=== PATIENT | male | born 1950 | race Hispanic/Latino ===

== ENCOUNTER 2018-04-11 16:40 | Emergency (ER) | payer MEDICARE ==
[~2018-04-11 16:40] MED LIST: ACET-48 PO; ALBU90AE IH; ASPI-555 PO; BACL10TA PO; BUDE10.2 IH; BUSP5TAB3 PO; CARV6.25 PO; DILT180C86 PO; ESCI20TA PO; FINA5TAB41 PO; FURO40TA5 PO; GABA-531 PO; INSU500I SQ; LABE200T5 PO; LACT10SO PO; LINA5TAB PO; Losartan Potassium PO; MOME17N EN; NITRO STAT SQ; OLOP5DRO14 OP; RIVA20TA PO; SIMV20TA6 PO; SPIR50TA PO; TAMS0.4C32 PO; VIT D2 PO
[2018-04-11] MEDS ORDERED: TRAMADOL HCL 50 MG TABLET ONE ×2 (17:15→17:19)
[2018-04-11] MEDS ORDERED: ACETAMINOPHEN EXTRA STRENGTH 500 MG TABLET ONE ×2 (17:15→17:19)
[2018-04-11] MEDS ORDERED: ONDANSETRON HCL 4 MG/2 ML VIAL ONE (18:50)
[2018-04-11] MEDS ORDERED: MORPHINE SULFATE 4 MG/1ML SYG ONE ×2 (18:50→21:39)
== END 2018-04-11 23:17 | disposition home or self-care (01) ==
LOC: EDH 16:40
DX: S82.852A Displaced trimalleolar fracture of left lower leg, initial encounter for closed fracture (principal); E10.9 Type 1 diabetes mellitus without complications; I10 Essential (primary) hypertension; M06.9 Rheumatoid arthritis, unspecified; Z91.048 Other nonmedicinal substance allergy status; Z98.890 Other specified postprocedural states; W18.39XA Other fall on same level, initial encounter; Y93.89 Activity, other specified; Y92.89 Other specified places as the place of occurrence of the external cause; Y99.8 Other external cause status
CPT/HCPCS: 29515; 73610; 73630; 96374; 96375; 96376; 99285; J2270 ×2; J2405

== ENCOUNTER 2018-06-02 18:04 | Emergency (ER) | payer MEDICARE ==
[2018-06-02 18:23] LABS: BASOPHILS % (AUTO) 0.4 % (0.0-5.0); EOSINOPHILS % (AUTO) 5.1 % (0.0-8.0); HEMATOCRIT 37.9 % (42-54); LYMPHOCYTES % (AUTO) 22.1 % (21.0-51.0); MEAN CORPUSCULAR HEMOGLOBIN 29.8 pg (27.0-33.0); MEAN CORPUSCULAR HGB CONC 33.5 g/dL (32.0-36.0); MEAN CORPUSCULAR VOLUME 88.9 fL (79-99); MONOCYTES % (AUTO) 8.1 % (3.0-13.0); NEUTROPHILS % (AUTO) 64.3 % (40.0-77.0); PLATELET COUNT (AUTO) 223 K/uL (130-400); RED BLOOD CELL COUNT(AUTO) 4.26 MIL/uL (4.50-6.20); RED CELL DISTRIBUTION WIDTH 14.2 % (11.0-15.5); WHITE BLOOD COUNT (AUTO) 6.7 K/uL (4.8-10.8)
[2018-06-02 18:45] LABS: ALBUMIN 2.9 g/dL (3.5-5.0); BILIRUBIN,TOTAL 0.3 mg/dL (0.2-1.0); CREATININE 1.1 mg/dL (0.5-1.5); POTASSIUM 4.9 mmol/L (3.5-5.1); TOTAL PROTEIN, SERUM 7.3 g/dL (6.0-8.3)
[2018-06-02] MEDS ORDERED: ACETAMINOPHEN EXTRA STRENGTH 500 MG TABLET ONE (20:30)
== END 2018-06-02 22:24 | disposition home or self-care (01) ==
LOC: EDH 18:04
DX: I10 Essential (primary) hypertension (principal); I48.91 Unspecified atrial fibrillation; E78.5 Hyperlipidemia, unspecified; E11.9 Type 2 diabetes mellitus without complications; G89.29 Other chronic pain; Z90.49 Acquired absence of other specified parts of digestive tract; Z98.890 Other specified postprocedural states; Z87.891 Personal history of nicotine dependence; Z91.048 Other nonmedicinal substance allergy status; Z79.4 Long term (current) use of insulin
CPT/HCPCS: 36415; 80053; 84484; 85025; 93005

== ENCOUNTER → 2018-11-10 | Outpatient (CLI) | payer MEDICARE ==
--- NOTE | 2018-11-10 10:47 | NUR ---
MBSS COMPLETED. -S/S OF ASPIRATION. RECOMMEND REGULAR DIET AND NECTAR THICK LIQUIDS. Addendum: 11/10/18 at 1050 by TREVON GARCIA [facility] Amended: Links added.
== END | disposition home or self-care (01) ==
LOC: RAH 09:31
PROVIDERS: ATTEND Family Medicine Adult Medicine
DX: I63.89 Other cerebral infarction (principal); R13.10 Dysphagia, unspecified; I10 Essential (primary) hypertension; E11.9 Type 2 diabetes mellitus without complications; Z79.899 Other long term (current) drug therapy
CPT/HCPCS: 74230; 92611

== ENCOUNTER 2019-02-09 12:51 | Emergency (ER) | payer MEDICARE ==
[2019-02-09] MEDS ORDERED: HYDROCODONE/ACETAMINOPHEN 10/325 MG TAB ONE (15:28)
== END 2019-02-09 15:42 | disposition home or self-care (01) ==
LOC: EDH 12:51
DX: M25.572 Pain in left ankle and joints of left foot (principal); I48.91 Unspecified atrial fibrillation; E11.9 Type 2 diabetes mellitus without complications; E78.5 Hyperlipidemia, unspecified; I10 Essential (primary) hypertension; F12.10 Cannabis abuse, uncomplicated; M06.9 Rheumatoid arthritis, unspecified; Z90.49 Acquired absence of other specified parts of digestive tract; Z79.4 Long term (current) use of insulin; Z72.0 Tobacco use; Z91.048 Other nonmedicinal substance allergy status
CPT/HCPCS: 73600; 82948

== ENCOUNTER → 2019-02-14 | Outpatient (CLI) | payer MEDICARE ==
[~2019-02-14] MED LIST changes: -ACET-48 PO; +ACET-49 PO; +SIMV-43 PO; -SIMV20TA6 PO
== END | disposition home or self-care (01) ==
LOC: RAH 12:37
PROVIDERS: ATTEND Family Medicine Adult Medicine
DX: I63.9 Cerebral infarction, unspecified (principal)
CPT/HCPCS: 70450

== ENCOUNTER 2019-05-17 15:58 | Emergency (ER) | payer MEDICARE ==
[2019-05-17] MEDS ORDERED: HYDROCODONE/ACETAMINOPHEN 10/325 MG TAB ONE (16:46)
[2019-05-17] MEDS ORDERED: MORPHINE SULFATE 5 MG/ML VIAL ONE ×2 (17:51→17:52)
== END 2019-05-17 18:14 | disposition home or self-care (01) ==
LOC: EDH 15:58
DX: S42.202A Unspecified fracture of upper end of left humerus, initial encounter for closed fracture (principal); I48.91 Unspecified atrial fibrillation; E11.9 Type 2 diabetes mellitus without complications; E78.5 Hyperlipidemia, unspecified; I10 Essential (primary) hypertension; F12.10 Cannabis abuse, uncomplicated; M06.9 Rheumatoid arthritis, unspecified; Z79.4 Long term (current) use of insulin; Z90.49 Acquired absence of other specified parts of digestive tract; Y04.0XXA Assault by unarmed brawl or fight, initial encounter; Y93.89 Activity, other specified; Y92.89 Other specified places as the place of occurrence of the external cause; Y99.8 Other external cause status
CPT/HCPCS: 71046; 72040; 73030; 96372; 99284; J2270 ×2

== ENCOUNTER 2019-06-23 10:00 | Observation (INO) | payer MEDICARE ==
[~2019-06-23] VITALS: Ht 167.6 cm; Wt 161.5 kg
[2019-06-23 10:00] VITALS: BP 103/62
[~2019-06-23 10:00] MED LIST changes: -ACET-49 PO; -ALBU90AE IH; -ASPI-555 PO; -BUDE10.2 IH; -CARV6.25 PO; -DILT180C86 PO; -ESCI20TA PO; -FINA5TAB41 PO; -GABA-531 PO; -INSU500I SQ; -LABE200T5 PO; -LACT10SO PO; -LINA5TAB PO; -Losartan Potassium PO; -MOME17N EN; -NITRO STAT SQ; -OLOP5DRO14 OP; -RIVA20TA PO; -SIMV-43 PO; -SPIR50TA PO; -TAMS0.4C32 PO; -VIT D2 PO
[2019-06-23 11:16] LABS: BASOPHILS % (AUTO) 0.9 % (0.0-5.0); EOSINOPHILS % (AUTO) 4.4 % (0.0-8.0); HEMATOCRIT 44.8 % (42-54); LYMPHOCYTES % (AUTO) 16.4 % (21.0-51.0); MEAN CORPUSCULAR HGB CONC 32.4 g/dL (32.0-36.0); MEAN CORPUSCULAR VOLUME 95.7 fL (79-99); MONOCYTES % (AUTO) 7.8 % (3.0-13.0); NEUTROPHILS % (AUTO) 70.1 % (40.0-77.0); PLATELET COUNT (AUTO) 208 K/uL (130-400); RED BLOOD CELL COUNT(AUTO) 4.68 MIL/uL (4.50-6.20); RED CELL DISTRIBUTION WIDTH 14.2 % (11.0-15.5); WHITE BLOOD COUNT (AUTO) 9.2 K/uL (4.8-10.8)
[2019-06-23 11:32] LABS: CREATININE 2.1 mg/dL (0.5-1.5); POTASSIUM 4.2 mmol/L (3.5-5.1)
[2019-06-23] MEDS ORDERED: VENL150T3 PO (14:07)
[2019-06-23] MEDS ORDERED: FINA5TAB41 PO (14:07)
[2019-06-23] MEDS ORDERED: ACET1TAB12 PO (14:07)
[2019-06-23] MEDS ORDERED: EMPA25TA PO (14:07)
[2019-06-23] MEDS ORDERED: METO5TAB7 PO (14:07)
[2019-06-23] MEDS ORDERED: TRAZ-185 PO (14:07)
[2019-06-23] MEDS ORDERED: TAMS-1 PO (14:07)
[2019-06-23] MEDS ORDERED: VENL75TA89 PO (14:07)
[2019-06-23] MEDS ORDERED: MULT-1289 PO (14:07)
[2019-06-23] MEDS ORDERED: POTA-79 PO (14:07)
[2019-06-23] MEDS ORDERED: OLME20TA22 PO (14:07)
[2019-06-23] MEDS ORDERED: GABA-531 PO (14:07)
[2019-06-23] MEDS ORDERED: CARV3.12 PO (14:07)
[2019-06-23] MEDS ORDERED: CELE100 PO (15:54)
[2019-06-23] MEDS ORDERED: ASPI-556 PO (15:54)
[2019-06-23] MEDS ORDERED: RIVA20TA PO (15:54)
--- NOTE | 2019-06-23 16:02 | NUR ---
LABS ABNORMAL LABS REPORTED TO DR PAIGE, NO FURTHER ORDERS GIVEN
[2019-06-26] VITALS (23 sets, daily range): BP systolic 110–190; BP diastolic 53–95
[2019-06-26] MEDS ORDERED: CEFAZOLIN 3GM /D5W 100ML 100 ML IV PRN (08:00)
[2019-06-26] MEDS ORDERED: LIDOCAINE PF 2% 5ML ABBOJECT ONE (13:33)
[2019-06-26] MEDS ORDERED: NEOSTIGMINE 5MG/5ML SYR IV ONE (13:34)
[2019-06-26] MEDS ORDERED: DEXAMETHASONE SOD PHOSPHATE 10MG/ML 1ML VIAL ONE (13:34)
[2019-06-26] MEDS ORDERED: ONDANSETRON HCL 4 MG/2 ML VIAL ONE (13:34)
[2019-06-26] MEDS ORDERED: MIDAZOLAM HCL 1 MG/ML 2ML VIAL ONE (13:34)
[2019-06-26] MEDS ORDERED: PROPOFOL 10 MG/ML 20ML VIAL IV ONE (13:34)
[2019-06-26] MEDS ORDERED: GLYCOPYRROLATE 1 MG/5 ML SYRINGE ONE (13:34)
[2019-06-26] MEDS ORDERED: FENTANYL CITRATE PF 50 MCG/1 ML 2ML VIAL ONE ×3 (13:35→19:58)
[2019-06-26] MEDS ORDERED: ROCURONIUM 10MG/1ML SYR 10 MG/ML ML ONE ×2 (13:35→17:07)
[2019-06-26] MEDS ORDERED: CEFAZOLIN SODIUM 1 GM VIAL ONE ×2 (14:00→17:36)
[2019-06-26] MEDS ORDERED: SODIUM CHLORIDE 0.9% 1000ML 1,000 ML IV ONE (14:01)
[2019-06-26] MEDS ORDERED: ROPIVACAINE 0.5% 5MG/ML 30ML IJ ONE (14:25)
[2019-06-26] MEDS ORDERED: KETAMINE 50MG/ML SYRINGE 50 MG/ML DISP.SYRIN IV ONE (14:35)
[2019-06-26] MEDS ORDERED: ALBUMIN (HUMAN) 5% 250 ML IV ONE (16:56)
[2019-06-26] MEDS ORDERED: EPHEDRINE SULFATE 50 MG/ML AMPULE ONE (17:19)
[2019-06-26] MEDS ORDERED: NOREPINEPHRINE BITARTRATE 1 MG/1 ML ML IV ONE (17:25)
[2019-06-26] MEDS ORDERED: LIDOCAINE HCL 2% JELLY 5 ML ONE (18:37)
[2019-06-26] MEDS ORDERED: FUROSEMIDE 10 MG/ML 4ML VIAL ONE (18:46)
[2019-06-26] MEDS ORDERED: OXYCODONE HCL 5 MG TAB PO PRN (19:30)
[2019-06-26] MEDS ORDERED: FERROUS FUMARATE 324 MG TABLET PO PRN (19:30)
[2019-06-26] MEDS ORDERED: HYDROCODONE/ACETAMINOPHEN 5/325 MG TAB PO PRN ×2 (19:30)
[2019-06-26] MEDS ORDERED: LIDOCAINE HCL-MPF 1% 2ML VIAL IV PRN (19:30)
[2019-06-26] MEDS ORDERED: PROMETHAZINE HCL 25 MG/ML 1ML AMPULE IM PRN (19:30)
[2019-06-26] MEDS ORDERED: POTASSIUM CHLORIDE 20MEQ/100ML 100 ML IV PRN (19:30)
[2019-06-26] MEDS: ACETAMINOPHEN EXTRA STRENGTH 500 MG TABLET PO SCH (19:30)
[2019-06-26] MEDS ORDERED: DiphenhydrAMINE HCL 50 MG/ML VIAL IVP PRN (19:30)
[2019-06-26] MEDS ORDERED: DIPHENHYDRAMINE HCL 25 MG CAPSULE PO PRN (19:30)
[2019-06-26] MEDS ORDERED: CALCIUM CARBONATE 500 MG TABLET PO PRN (19:30)
[2019-06-26] MEDS ORDERED: POTASSIUM CHLORIDE 10% ELIXIR 20 MEQ/15 ML UDCUP PO PRN (19:30)
[2019-06-26] MEDS ORDERED: POTASSIUM CHLORIDE 20 MEQ ERTAB PO PRN (19:30)
[2019-06-26] MEDS ORDERED: IPRATROPIUM/ALBUTEROL SULFATE 3 ML SOLUTION IH ONE (20:11)
[2019-06-26] MEDS ORDERED: HYDRALAZINE HCL 20 MG/ML VIAL ONE (20:22)
--- NOTE | 2019-06-26 21:20 | NUR ---
PATIENT RECEIVED FROM PACU, S/P IM NAIL FIXATION WITH BLOCK TO LEFT NONDISPLACED FX UPPER END LEFT HUMERUS. PATIENT IS AAOX3, LEFT ARM WITH SLING. DRESSING TO SURGICAL SITE IS D/I. NEUROVASCULAR STATUS INTACT. POC DISCUSSED WITH PATIENT, INSTRUCTED PHYSICAL THERAPY ASSISTANT INSTRUCTOR HANSEN USE AND PAIN CONTROL. PATIENT VOICED UNDERSTANDING. WILL CONT TO MONITOR CLOSELY. V/S UPON ARRIVAL STABLE.
[2019-06-26] MEDS: PREGABALIN 25 MG CAP PO SCH (21:43)
[2019-06-26] MEDS: SODIUM CHLORIDE 0.9% 1000ML 1,000 ML IV SCH (21:44)
[2019-06-26] MEDS: INSULIN HUMULIN R 100 UNIT/ML 3ML SQ SCH (21:47)
[2019-06-26] MEDS: OXYCODONE HCL 5 MG TAB PO PRN (22:26)
[2019-06-27] VITALS (7 sets, daily range): BP systolic 125–150; BP diastolic 66–98
[2019-06-27] MEDS: CEFAZOLIN 3GM /D5W 100ML 100 ML IV SCH ×2 (00:08→08:54)
[2019-06-27] MEDS: TRAMADOL HCL 50 MG TABLET PO PRN ×2 (01:32→15:08)
[2019-06-27] MEDS: ACETAMINOPHEN EXTRA STRENGTH 500 MG TABLET PO SCH ×2 (03:22→09:02)
[2019-06-27] MEDS: OXYCODONE HCL 5 MG TAB PO PRN ×3 (04:15→13:50)
[2019-06-27 05:22] LABS: HEMATOCRIT 43.4 % (42-54); MEAN CORPUSCULAR HEMOGLOBIN 30.9 pg (27.0-33.0); MEAN CORPUSCULAR HGB CONC 32.7 g/dL (32.0-36.0); MEAN CORPUSCULAR VOLUME 94.3 fL (79-99); PLATELET COUNT (AUTO) 196 K/uL (130-400); RED CELL DISTRIBUTION WIDTH 14.2 % (11.0-15.5); WHITE BLOOD COUNT (AUTO) 11.7 K/uL (4.8-10.8)
[2019-06-27] MEDS: SODIUM CHLORIDE 0.9% 1000ML 1,000 ML IV SCH ×2 (05:26→12:54)
[2019-06-27 05:31] LABS: INR 1.01 (0.85-1.15); PROTHROMBIN TIME 10.9 SEC (9.6-11.6)
[2019-06-27 05:35] LABS: CREATININE 1.6 mg/dL (0.5-1.5); POTASSIUM 4.4 mmol/L (3.5-5.1)
[2019-06-27] MEDS: INSULIN HUMULIN R 100 UNIT/ML 3ML SQ SCH ×3 (05:53→16:59)
[2019-06-27] MEDS: PREGABALIN 25 MG CAP PO SCH (08:58)
[2019-06-27] MEDS ORDERED: EMPAGLIFLOZIN 25 MG PO SCH (09:00)
[2019-06-27] MEDS ORDERED: ASPIRIN 81 MG EC TAB PO SCH (09:00)
[2019-06-27] MEDS ORDERED: POLYETHYLENE GLYCOL 3350 17 GM POWD.PACK PO SCH (09:00)
[2019-06-27] MEDS ORDERED: GABAPENTIN 300 MG CAPSULE PO SCH (09:00)
[2019-06-27] MEDS ORDERED: MULTIVITAMIN WITH MINERALS TABLET PO SCH (09:00)
[2019-06-27] MEDS ORDERED: FUROSEMIDE 40 MG TABLET PO SCH (09:00)
[2019-06-27] MEDS ORDERED: LOSARTAN 50 MG TABLET PO SCH (09:00)
[2019-06-27] MEDS ORDERED: BUSPIRONE HCL 5 MG TABLET PO SCH (09:00)
[2019-06-27] MEDS ORDERED: VENLAFAXINE HCL XR 37.5 MG CAP PO SCH ×2 (09:00→21:00)
[2019-06-27] MEDS ORDERED: POTASSIUM CHLORIDE 20 MEQ ERTAB PO SCH (09:00)
[2019-06-27] MEDS ORDERED: METOLAZONE 2.5 MG TABLET PO SCH (09:00)
[2019-06-27] MEDS ORDERED: CARVEDILOL 3.125 MG TABLET PO SCH (09:00)
[2019-06-27] MEDS ORDERED: CELECOXIB 100 MG CAP PO SCH (09:00)
--- NOTE | 2019-06-27 09:00 | NUR ---
INITIAL AND REFERRAL MET W PATIENT FOR DC PLANNING S/P L SHOULDER SURGERY, S/P FALL/FX; PATIENT LIVES ALONE, USES HOWER CHAIR CANE, ROLLING WALKER, AND A WHEELCHAIR, NO STAIRS AT HOUSE, PATIENT HAD PROVIDER HOURS IN AM / PM AND GRAND DAUGHTER COMES TO HELP ALSO. CALL TO DAUGHTER JUDE AT REQUEST OF PATIENT CALL RETURNED, PLAN OF CARE DISCUSSED; VERBAL CONSENT FROM PATIENT FOR APC AND REFERRAL FAXED
[2019-06-27] MEDS ORDERED: PSYLLIUM SEED 1 EACH PACKET PO SCH (12:00)
--- NOTE | 2019-06-27 15:11 | NUR ---
INITIAL AND REFERRAL MET W PATIENT FOR DC PLANNING S/P L SHOULDER SURGERY, S/P FALL/FX; PATIENT LIVES ALONE, USES HOWER CHAIR CANE, ROLLING WALKER, AND A WHEELCHAIR, NO STAIRS AT HOUSE, PATIENT HAD PROVIDER HOURS IN AM / PM AND GRAND DAUGHTER COMES TO HELP ALSO. CALL TO DAUGHTER JUDE AT REQUEST OF PATIENT CALL RETURNED, PLAN OF CARE DISCUSSED; VERBAL CONSENT FROM PATIENT FOR APC AND REFERRAL FAXED Addendum: 06/27/19 at 1516 by EVIE RAMOS RN Amended: Links added.
--- NOTE | 2019-06-27 15:44 | NUR ---
ACCEPTED AT [facility] FOR DISCHARGE TODAY OR TOMORROW PLEASE CALL REPORT TO NUMBER ON ORANGE NOTICE
--- NOTE | 2019-06-27 17:40 | NUR ---
REPORT CALLED TO ANDREA CORONA RN [facility] ANDREA VERBALIZED UNDERSTANDING.
[2019-06-27] MEDS ORDERED: RIVAROXABAN 20 MG TABLET PO SCH (18:00)
--- NOTE | 2019-06-27 18:41 | NUR ---
Incentive Spirometry given to Genevieve BURKS and was told to call respiratory as soon as patient was awaken 06/26 0100. Addendum: 06/27/19 at 1845 by LYNSEY VILLALPANDO RT Amended: Links added.
[2019-06-27] MEDS ORDERED: HYDR-4457 PO (19:04)
[2019-06-27] MEDS ORDERED: CEPH500B PO (19:04)
--- NOTE | 2019-06-27 20:22 | NUR ---
DISCHARGE INSTRUCTIONS GIVEN AND EXPLAINED UTILIZING TEACH BACK METHOD, PT/SON VERBALIZED UNDERSTANDING. DISCHARGE TO [facility]. [phone] - UP TOLERATED - RESUME YOUR PREVIOUS HOME DIET - REMOVE DRESSING ON 06/29/19 - WEAR SLING WHEN UP AND AROUND, REMOVE AT NIGHT. - KEEP OPERATED EXTREMITY ELEVATED WHEN SEATED OR IN BED. FOLLOW UP WITH DR. PAIGE IN 3 WEEKS. CALL TOMORROW TO MAKE APPOINTMENT. CALL SOONER FOR ANY CONCERNS. [phone] CALL 911 OR GO TO EMERGENCY ROOM IF YOU HAVE ANY CHEST PAIN/DISCOMFORT, SHORTNESS OF BREATH/DIFFICULTY BREATHING OR NEEDED.
[2019-06-27] MEDS ORDERED: FINASTERIDE 5 MG TABLET PO SCH (21:00)
[2019-06-27] MEDS ORDERED: BACLOFEN 10 MG TABLET PO SCH (21:00)
[2019-06-27] MEDS ORDERED: TAMSULOSIN HCL 0.4 MG CAP.ER.24H PO SCH (21:00)
[2019-06-27] MEDS ORDERED: TRAZODONE HCL 50 MG TAB PO SCH (21:00)
[2019-06-28] MEDS ORDERED: BISACODYL 5 MG TABLET.DR PO PRN (19:30)
[2019-06-29] MEDS ORDERED: BISACODYL 10 MG SUPP.RECT RC PRN (19:30)
== END 2019-06-27 20:00 | disposition home health service (06) ==
LOC: EDSTATUS 10:00 → DAHIP 06-26 09:30 → 4AH 06-26 21:11
PROVIDERS: ADMIT Orthopaedic Surgery; ATTEND Orthopaedic Surgery
DX: S42.292K Other displaced fracture of upper end of left humerus, subsequent encounter for fracture with nonunion (principal); X58.XXXD Exposure to other specified factors, subsequent encounter
CPT/HCPCS: 24430; 36415 ×2; 73020; 80048 ×2; 82948 ×6; 85025; 85027; 85610; 86850; 86900; 86901; 94640; 96365; 96366; A4213; A4215; A4221; A4222; A4223; A4565; A4663; A4930 ×2; A5120; A6204; C1713 ×2; G0378 ×17; J0360; J0690 ×3; J1100; J1815 ×2; J1940; J2001; J2250; J2405; J2704; J2710; J2795; J3010 ×3; J3490 ×4; J7030 ×3; P9045

== ENCOUNTER 2020-01-06 10:49 | Inpatient (IN) | payer OTHER, MEDICARE ==
[~2020-01-06] VITALS: Ht 167.6 cm; Wt 158.8 kg
[~2020-01-06 10:49] MED LIST changes: +ASPI-556 PO; +CARV3.12 PO; +CELE100 PO; +CEPH500B PO; +EMPA25TA PO; +FINA5TAB41 PO; +GABA-531 PO; +HYDR-4457 PO; +METO5TAB7 PO; +MULT-1289 PO; +OLME20TA22 PO; +POTA-79 PO; +RIVA20TA PO; +TAMS-1 PO; +TRAZ-185 PO; +VENL150T3 PO; +VENL75TA89 PO
[2020-01-06 11:41] LABS: BASOPHILS % (AUTO) 0.3 % (0.0-5.0); EOSINOPHILS % (AUTO) 0.2 % (0.0-8.0); LYMPHOCYTES % (AUTO) 4.5 % (21.0-51.0); MEAN CORPUSCULAR HEMOGLOBIN 31.3 pg (27.0-33.0); MEAN CORPUSCULAR HGB CONC 33.7 g/dL (32.0-36.0); MONOCYTES % (AUTO) 6.8 % (3.0-13.0); NEUTROPHILS % (AUTO) 87.5 % (40.0-77.0); PLATELET COUNT (AUTO) 168 K/uL (130-400); RED BLOOD CELL COUNT(AUTO) 5.59 MIL/uL (4.50-6.20); RED CELL DISTRIBUTION WIDTH 16.7 % (11.0-15.5); WHITE BLOOD COUNT (AUTO) 19.7 K/uL (4.8-10.8)
[2020-01-06 11:52] LABS: ALBUMIN 3.5 g/dL (3.5-5.0); BILIRUBIN,TOTAL 1.1 mg/dL (0.2-1.0); POTASSIUM 3.9 mmol/L (3.5-5.1); TOTAL PROTEIN, SERUM 7.6 g/dL (6.0-8.3)
[2020-01-06 12:21] LABS: CREATININE 2.4 mg/dL (0.5-1.5)
[2020-01-06] MEDS ORDERED: ONDANSETRON HCL 4 MG/2 ML VIAL ONE (13:04)
[2020-01-06 13:42] LABS: APPEARANCE,URINE CLOUDY (CLEAR); BILIRUBIN,URINE MODERATE (NEGATIVE); COLOR,URINE YELLOW (YELLOW); GLUCOSE, URINE (UA) 100 mg/dL (NEGATIVE); KETONES,URINE 15 mg/dL (NEGATIVE); LEUKOCYTE ESTERASE ,URINE NEGATIVE (NEGATIVE); NITRATE,URINE NEGATIVE (NEGATIVE); OCCULT BLOOD,URINE NEGATIVE (NEGATIVE); PROTEIN,URINE TRACE mg/dL (NEGATIVE)
[2020-01-06 13:50] LABS: BACTERIA,URINE Rare /HPF (None Seen); RBC,URINE 0-1 /HPF (0-1); SQUAMOUS EPITHELIAL CELL,UR Moderate /HPF (0-2)
[2020-01-06] MEDS ORDERED: MORPHINE SULFATE 2 MG/ML 1ML SYG ONE (14:18)
[2020-01-06] MEDS ORDERED: ONDANSETRON HCL 4 MG/2 ML VIAL IVP PRN (14:45)
[2020-01-06] MEDS ORDERED: ACETAMINOPHEN 650 MG SUPPOSITORY RC PRN (14:45)
[2020-01-06] MEDS ORDERED: MORPHINE SULFATE 2 MG/ML 1ML SYG IVP PRN (14:45)
[2020-01-06] MEDS ORDERED: METRONIDAZOLE 500MG/100ML BAG 100 ML ONE (14:53)
[2020-01-06] MEDS: METRONIDAZOLE 500MG/100ML BAG 100 ML IVPB SCH ×2 (15:00→21:47)
[2020-01-06] MEDS ORDERED: ZOSYN 3.375GM+NS 50ML 50 ML IV SCH ×2 (15:00)
[2020-01-06] MEDS ORDERED: ZOSYN 3.375GM+NS 50ML 50 ML IV ONE (15:14)
[2020-01-06] MEDS: ZOSYN 3.375GM+NS 50ML 50 ML IV SCH (16:00)
[2020-01-06] MEDS: SODIUM CHLORIDE 0.9% 1000ML 1,000 ML IV SCH (16:45)
[2020-01-06 17:00] VITALS: BP 94/56
[2020-01-06] MEDS ORDERED: FURO40TA7 PO (17:35)
[2020-01-06] MEDS ORDERED: EMPA25TA PO (17:35)
[2020-01-06] MEDS ORDERED: TAMS-1 PO (17:35)
[2020-01-06] MEDS ORDERED: OLME20TA22 PO (17:35)
[2020-01-06] MEDS ORDERED: BACL10TA PO (17:35)
[2020-01-06] MEDS ORDERED: METO5TAB7 PO (17:35)
[2020-01-06] MEDS ORDERED: GABA600T10 PO (17:35)
[2020-01-06] MEDS ORDERED: AEC81 PO (17:35)
[2020-01-06] MEDS ORDERED: RIVA20TA PO (17:35)
[2020-01-06] MEDS ORDERED: CETI10TA57 PO (17:35)
[2020-01-06] MEDS ORDERED: POTA-79 PO (17:35)
[2020-01-06] MEDS ORDERED: VENL-61 PO (17:35)
[2020-01-06] MEDS ORDERED: FURO40TA5 PO (17:35)
[2020-01-06] MEDS ORDERED: FINA5TAB41 PO (17:35)
[2020-01-06] MEDS ORDERED: CARV3.12 PO (17:35)
[2020-01-06] MEDS ORDERED: TRAZ-187 PO (17:35)
[2020-01-06] MEDS ORDERED: ICOS1CAP PO (17:35)
[2020-01-06] MEDS ORDERED: FA/M1TAB31 PO (17:38)
[2020-01-06] MEDS ORDERED: TEMA15CA PO (17:38)
[2020-01-06] MEDS ORDERED: ACET1TAB25 PO (17:38)
[2020-01-06] MEDS ORDERED: CELE100C97 PO (17:38)
--- NOTE | 2020-01-06 18:45 | NUR ---
PER LOUISE SMOKES MARIJUANA ON A DAILY BASIS Addendum: 01/06/20 at 1847 by TELMA JOHN RN RN Amended: Links added.
[2020-01-06 20:00] VITALS: BP 86/49
[2020-01-06] MEDS ORDERED: KETOROLAC TROMETHAMINE 15MG/ML ONE (23:07)
[2020-01-06] MEDS ORDERED: KETOROLAC TROMETHAMINE 15MG/ML IV SCH (23:15)
[2020-01-06 23:58] VITALS: BP 86/59
[2020-01-07] VITALS (17 sets, daily range): BP systolic 70–138; BP diastolic 44–78
--- NOTE | 2020-01-07 03:55 | NUR ---
toby jenkins , pt's is hypotensive
--- NOTE | 2020-01-07 04:05 | NUR ---
PT DENIES SOB PT DENIES CP PT ALERT AND ORIENTED X 4
--- NOTE | 2020-01-07 04:10 | NUR ---
BASKET PATCHER AWARE PT'S BLOOD PRESSURE IS LOWER THAN BEFORE 500 CC BOLUS ORDERED BASKET PATCHER AWARE OF PT'S HOME MEDS AND THAT PT IS NOT ON ANY DVT PROPHALAXIS NO NEW ORDERS ON THIS WILL CONTINUE TOMONITOR
[2020-01-07 04:11] LABS: BASOPHILS % (AUTO) 0.2 % (0.0-5.0); EOSINOPHILS % (AUTO) 0.1 % (0.0-8.0); LYMPHOCYTES % (AUTO) 7.5 % (21.0-51.0); MEAN CORPUSCULAR HEMOGLOBIN 31.1 pg (27.0-33.0); MEAN CORPUSCULAR HGB CONC 33.8 g/dL (32.0-36.0); MONOCYTES % (AUTO) 5.3 % (3.0-13.0); NEUTROPHILS % (AUTO) 86.1 % (40.0-77.0); PLATELET COUNT (AUTO) 147 K/uL (130-400); RED BLOOD CELL COUNT(AUTO) 4.89 MIL/uL (4.50-6.20); RED CELL DISTRIBUTION WIDTH 16.3 % (11.0-15.5)
[2020-01-07 04:30] LABS: CREATININE 2.7 mg/dL (0.5-1.5); POTASSIUM 4.1 mmol/L (3.5-5.1)
[2020-01-07] MEDS: METRONIDAZOLE 500MG/100ML BAG 100 ML IVPB SCH (05:21)
[2020-01-07] MEDS: ZOSYN 3.375GM+NS 50ML 50 ML IV SCH ×2 (05:21→16:00)
--- NOTE | 2020-01-07 05:40 | NUR ---
500 BOLUS OF NS GIVEN
--- NOTE | 2020-01-07 06:24 | NUR ---
DR. PINON PAGEIrena FOR LACTIC ACID
--- NOTE | 2020-01-07 06:39 | NUR ---
dr. mohan aware of lactic acid aware there was no lactic acid on admission aware of pt's current wbc compared to yesterday's aware of pt's history aware of pt's home medications aware pt doesn't have dvt prophalaxis aware of pt's vital signs and of previous bolus order and current ns at 100 pt denies chest pain, denies sob pt alert and oriented x 4 stated to give another bolus of 250 cc and elevated legs and continue to monitor
[2020-01-07] MEDS ORDERED: PHARMACY COMMUNICATION MISC SCH ×2 (07:30→17:00)
--- NOTE | 2020-01-07 07:30 | NUR ---
250 cc of ns bolus given
--- NOTE | 2020-01-07 08:15 | NUR ---
full sbar report given to icu nurse hakeem, aware of pending occult blood and orders from AM MARINE ARCHITECT. aware that patient voids well with a little bit of help and of pt's medical history pt transferred with telemetry , o2 at 3 liters pt denies sob , denies chest pain alert and oriented x 4
--- NOTE | 2020-01-07 08:15 | NUR ---
Pt to ICU Rm 221. Received report from floor nurse. Pt received to Rm 221. See charting for initial vital signs and assessment.
[2020-01-07] MEDS ORDERED: NOREPINEPHRINE 4MG/NS 250ML 250 ML IV ONE (08:16)
[2020-01-07] MEDS: FAMOTIDINE/PF 20 MG/2 ML VIAL IV SCH (08:29)
[2020-01-07] MEDS: SODIUM CHLORIDE 0.9% 1000ML 1,000 ML IV SCH (08:29)
--- NOTE | 2020-01-07 08:29 | NUR ---
person to notify anmol as per face sheet called , no answer, no space for voicemail either when patient was transferred he verbalized he would call his family, to re assure them he was "ok " primary nurse aware charge nurse aware
[2020-01-07] MEDS ORDERED: ENOXAPARIN SODIUM 40 MG/0.4 ML SYRINGE SQ SCH (09:00)
--- NOTE | 2020-01-07 11:55 | NUR ---
UPDATE : CALLED TO FOLLOW UP ON PATIENT TRANSFER ,SPOKE WITH DAUGHTER JUDE. PER JUDE SOMEONE HAD ALREADY CALLED THAT PT IS IN ICU .RM 221
--- NOTE | 2020-01-07 15:46 | NUR ---
INITIAL: Unable to meet w pt. Call placed to DWAINE Womack (dtr). Per Mrs Womack, prior to admission pt was living alone. He was independent within the home w ambulation. He has a rollator or cane avail. for community distances. Per Mrs Womack pt required setup for ADLs. He has provider services 36hr/week. Pt has a nebulizer and was able to drive himself where needed. Per pts dtr, dcp is for pt to return home at pr. CM to continue to follow and wait for Md recommendations. Addendum: 01/07/20 at 1548 by LUIS MANUEL BOGGS CM Amended: Links added.
[2020-01-07] MEDS ORDERED: LACTATED RINGERS 1000ML IV SCH (16:15)
[2020-01-07] MEDS: LACTATED RINGERS 1000ML 1,000 ML IV SCH ×2 (16:15→23:57)
[2020-01-07] MEDS ORDERED: LACTATED RINGERS 1000ML 1,000 ML IV ONE (16:25)
[2020-01-07] MEDS ORDERED: ALBUMIN (HUMAN) 25% 100 ML IV ONE (16:48)
[2020-01-07] MEDS ORDERED: MIDODRINE HCL 5 MG TABLET ONE (17:15)
[2020-01-07] MEDS: ALBUMIN (HUMAN) 25% 100 ML IV SCH (17:30)
[2020-01-07] MEDS ORDERED: MIDODRINE HCL 5 MG TABLET PO SCH (17:45)
--- NOTE | 2020-01-07 18:22 | NUR ---
Transfer to [facility]. Report to Ashley, receiving PCCU nurse. All questions answered. pt transported to [id number] without incident.
[2020-01-07] MEDS: MIDODRINE HCL 5 MG TABLET PO SCH (21:09)
[2020-01-08] MEDS: ALBUMIN (HUMAN) 25% 100 ML IV SCH ×3 (01:29→16:21)
[2020-01-08 03:55] VITALS: BP 100/56
[2020-01-08] MEDS: ZOSYN 3.375GM+NS 50ML 50 ML IV SCH ×2 (04:55→16:39)
[2020-01-08 05:55] LABS: BASOPHILS % (AUTO) 0.2 % (0.0-5.0); EOSINOPHILS % (AUTO) 0.1 % (0.0-8.0); HEMATOCRIT 42.6 % (42-54); LYMPHOCYTES % (AUTO) 7.4 % (21.0-51.0); MEAN CORPUSCULAR HEMOGLOBIN 30.3 pg (27.0-33.0); MEAN CORPUSCULAR HGB CONC 32.6 g/dL (32.0-36.0); MEAN CORPUSCULAR VOLUME 92.8 fL (79-99); MONOCYTES % (AUTO) 3.1 % (3.0-13.0); NEUTROPHILS % (AUTO) 88.1 % (40.0-77.0); PLATELET COUNT (AUTO) 136 K/uL (130-400); RED BLOOD CELL COUNT(AUTO) 4.59 MIL/uL (4.50-6.20); RED CELL DISTRIBUTION WIDTH 16.5 % (11.0-15.5); WHITE BLOOD COUNT (AUTO) 16.7 K/uL (4.8-10.8)
[2020-01-08 06:08] LABS: CREATININE,URINE RANDOM 55 mg/dL (30-135); SODIUM,URINE RANDOM 72 mmol/l (40-220)
[2020-01-08 06:12] LABS: ALBUMIN 2.9 g/dL (3.5-5.0); BILIRUBIN,TOTAL 0.9 mg/dL (0.2-1.0); CREATININE 1.6 mg/dL (0.5-1.5); POTASSIUM 3.6 mmol/L (3.5-5.1); TOTAL PROTEIN, SERUM 6.7 g/dL (6.0-8.3)
[2020-01-08 08:00] VITALS: BP 113/70
[2020-01-08] MEDS: MIDODRINE HCL 5 MG TABLET PO SCH ×3 (08:53→21:00)
[2020-01-08] MEDS: FAMOTIDINE/PF 20 MG/2 ML VIAL IV SCH (08:54)
[2020-01-08] MEDS ORDERED: ENOXAPARIN SODIUM 120 MG/0.8ML SQ SCH (09:00)
[2020-01-08] MEDS ORDERED: POTASSIUM CHLORIDE 20 MEQ ERTAB PO SCH (09:30)
[2020-01-08 11:55] VITALS: BP 100/68
--- NOTE | 2020-01-08 12:16 | NUR ---
DR. Jose Rafael COLON IN ROOM SPEAKING WITH PT. RE:PLAN OF CARE. QUESTIONS ANSWERED BY DR. COLON, PT. VERBALIZED UNDERSTANDING.
--- NOTE | 2020-01-08 13:20 | NUR ---
DR. ACEVEDO IN ROOM SPEAKING WITH PT. QUESTIONS ANSWERED BY DR. ACEVEDO, PT. VERBALIZED UNDERSTANDING.
[2020-01-08] MEDS: LACTATED RINGERS 1000ML 1,000 ML IV SCH ×2 (13:57→17:11)
[2020-01-08 16:00] VITALS: BP 123/77
[2020-01-08 19:25] VITALS: BP 97/56
[2020-01-08 23:10] VITALS: BP 111/72
[2020-01-09] MEDS: ALBUMIN (HUMAN) 25% 100 ML IV SCH ×3 (00:52→16:30)
[2020-01-09 03:12] VITALS: BP 139/72
[2020-01-09] MEDS: ZOSYN 3.375GM+NS 50ML 50 ML IV SCH ×2 (04:26→16:53)
[2020-01-09 07:51] VITALS: BP 121/78
[2020-01-09 07:51] LABS: BASOPHILS % (AUTO) 0.3 % (0.0-5.0); EOSINOPHILS % (AUTO) 0.3 % (0.0-8.0); HEMATOCRIT 43.5 % (42-54); MEAN CORPUSCULAR HEMOGLOBIN 31.2 pg (27.0-33.0); MEAN CORPUSCULAR HGB CONC 33.6 g/dL (32.0-36.0); MEAN CORPUSCULAR VOLUME 92.9 fL (79-99); NEUTROPHILS % (AUTO) 84.4 % (40.0-77.0); PLATELET COUNT (AUTO) 154 K/uL (130-400); RED BLOOD CELL COUNT(AUTO) 4.68 MIL/uL (4.50-6.20); WHITE BLOOD COUNT (AUTO) 14.1 K/uL (4.8-10.8)
[2020-01-09] MEDS: MIDODRINE HCL 5 MG TABLET PO SCH (08:12)
[2020-01-09] MEDS: LACTATED RINGERS 1000ML 1,000 ML IV SCH ×2 (08:12→21:30)
[2020-01-09] MEDS: FAMOTIDINE/PF 20 MG/2 ML VIAL IV SCH (08:13)
[2020-01-09 09:12] LABS: CREATININE 1.3 mg/dL (0.5-1.5); POTASSIUM 3.4 mmol/L (3.5-5.1)
--- NOTE | 2020-01-09 11:08 | NUR ---
ASSISTED OOB TO CHAIR AT BEDSIDE PER PT. REQUEST. CALL LIGHT WITHIN REACH.
[2020-01-09 11:26] VITALS: BP 153/88
--- NOTE | 2020-01-09 11:40 | NUR ---
ASSISTED FROM CHAIR TO RECLINER AT BEDSIDE. DENIES ANY C/O AT THIS TIME. CALL LIGHT WITHIN REACH.
--- NOTE | 2020-01-09 12:05 | NUR ---
DR. YOO IN ROOM ASSESSING PT. AND INFORMING OF PLAN OF CARE. QUESTIONS ANSWERED BY DR. YOO; PT. VERBALIZED UNDERSTANDING.
--- NOTE | 2020-01-09 16:05 | NUR ---
F/C REMOVED ORDERED. TOLERATED, W/O C/O. URINAL PROVIDED.
[2020-01-09 16:25] VITALS: BP 147/98
[2020-01-09 19:06] VITALS: BP 151/101
[2020-01-09] MEDS ORDERED: TRAZODONE HCL 100 MG TABLET ONE (19:24)
[2020-01-09] MEDS ORDERED: CARVEDILOL 3.125 MG TABLET PO ONE (19:24)
[2020-01-09] MEDS: CARVEDILOL 3.125 MG TABLET PO SCH (19:28)
[2020-01-09] MEDS ORDERED: TRAZODONE HCL 100 MG TABLET PO SCH (21:00)
[2020-01-09] MEDS ORDERED: MIDODRINE HCL 5 MG TABLET PO SCH (21:00)
[2020-01-09 22:56] VITALS: BP 127/72
[2020-01-10] MEDS: ALBUMIN (HUMAN) 25% 100 ML IV SCH (02:45)
[2020-01-10 03:18] VITALS: BP 125/73
[2020-01-10] MEDS: ZOSYN 3.375GM+NS 50ML 50 ML IV SCH ×2 (04:42→17:30)
[2020-01-10 06:31] LABS: BASOPHILS % (AUTO) 0.5 % (0.0-5.0); EOSINOPHILS % (AUTO) 0.9 % (0.0-8.0); HEMATOCRIT 41.9 % (42-54); LYMPHOCYTES % (AUTO) 11.3 % (21.0-51.0); MEAN CORPUSCULAR HEMOGLOBIN 31.1 pg (27.0-33.0); MEAN CORPUSCULAR HGB CONC 33.7 g/dL (32.0-36.0); MEAN CORPUSCULAR VOLUME 92.3 fL (79-99); MONOCYTES % (AUTO) 7.1 % (3.0-13.0); NEUTROPHILS % (AUTO) 78.8 % (40.0-77.0); PLATELET COUNT (AUTO) 160 K/uL (130-400); RED BLOOD CELL COUNT(AUTO) 4.54 MIL/uL (4.50-6.20); RED CELL DISTRIBUTION WIDTH 15.3 % (11.0-15.5); WHITE BLOOD COUNT (AUTO) 11.5 K/uL (4.8-10.8)
[2020-01-10 06:37] LABS: CREATININE 1.3 mg/dL (0.5-1.5)
[2020-01-10] MEDS ORDERED: MORPHINE SULFATE 2 MG/ML 1ML SYG IVP ONE (07:45)
[2020-01-10] MEDS ORDERED: ASPIRIN 325MG EC TAB 325 MG TABLET.DR PO SCH (07:45)
[2020-01-10 08:00] VITALS: BP 138/93
[2020-01-10] MEDS: FAMOTIDINE/PF 20 MG/2 ML VIAL IV SCH (08:06)
[2020-01-10] MEDS: CARVEDILOL 3.125 MG TABLET PO SCH (08:27)
[2020-01-10] MEDS ORDERED: VENLAFAXINE HCL 75 MG TAB PO SCH (09:00)
[2020-01-10] MEDS: POTASSIUM CHLORIDE 20 MEQ ERTAB PO PRN ×3 (11:40→13:46)
[2020-01-10] MEDS ORDERED: POTASSIUM CHLORIDE 20MEQ/100ML 100 ML IV PRN (11:45)
[2020-01-10] MEDS ORDERED: POTASSIUM CHLORIDE 10% ELIXIR 20 MEQ/15 ML UDCUP PO PRN (11:45)
[2020-01-10] MEDS ORDERED: LIDOCAINE HCL-MPF 1% 2ML VIAL IV PRN (11:45)
[2020-01-10] MEDS: LACTATED RINGERS 1000ML 1,000 ML IV SCH (12:08)
[2020-01-10 12:49] VITALS: BP 157/106
[2020-01-10 17:17] VITALS: BP 149/99
[2020-01-10] MEDS ORDERED: METO-408 PO (20:03)
[2020-01-10 20:04] VITALS: BP 135/88
== END 2020-01-10 20:30 | disposition home or self-care (01) | DRG 871 ==
LOC: EDH 10:49 → EDHIP 14:28 → 3DH 15:25 → 2DH 01-07 08:57 → 4BH 01-07 18:13
PROVIDERS: ADMIT Family Medicine; ATTEND Family Medicine
DX: A41.9 Sepsis, unspecified organism (principal); R65.21 Severe sepsis with septic shock; K57.92 Diverticulitis of intestine, part unspecified, without perforation or abscess without bleeding; N17.9 Acute kidney failure, unspecified; N39.0 Urinary tract infection, site not specified; I24.9 Acute ischemic heart disease, unspecified; I48.20 Chronic atrial fibrillation, unspecified; K57.80 Diverticulitis of intestine, part unspecified, with perforation and abscess without bleeding; N18.4 Chronic kidney disease, stage 4 (severe); Z68.43 Body mass index [BMI] 50.0-59.9, adult; E66.01 Morbid (severe) obesity due to excess calories; Z20.828 Contact with and (suspected) exposure to other viral communicable diseases; E11.22 Type 2 diabetes mellitus with diabetic chronic kidney disease; E78.5 Hyperlipidemia, unspecified; E86.9 Volume depletion, unspecified; F12.90 Cannabis use, unspecified, uncomplicated; G47.33 Obstructive sleep apnea (adult) (pediatric); G89.29 Other chronic pain; R07.89 Other chest pain; I25.10 Atherosclerotic heart disease of native coronary artery without angina pectoris; R53.81 Other malaise; I48.0 Paroxysmal atrial fibrillation; I95.1 Orthostatic hypotension; I12.9 Hypertensive chronic kidney disease with stage 1 through stage 4 chronic kidney disease, or unspecified chronic kidney disease; J44.9 Chronic obstructive pulmonary disease, unspecified; Z96.653 Presence of artificial knee joint, bilateral; K52.9 Noninfective gastroenteritis and colitis, unspecified; M06.9 Rheumatoid arthritis, unspecified; N40.0 Benign prostatic hyperplasia without lower urinary tract symptoms; Z91.048 Other nonmedicinal substance allergy status; Z79.01 Long term (current) use of anticoagulants; Z87.891 Personal history of nicotine dependence; Z95.0 Presence of cardiac pacemaker; Z86.73 Personal history of transient ischemic attack (TIA), and cerebral infarction without residual deficits; Z83.3 Family history of diabetes mellitus; Z82.5 Family history of asthma and other chronic lower respiratory diseases; Z82.3 Family history of stroke; Z82.0 Family history of epilepsy and other diseases of the nervous system; Z80.51 Family history of malignant neoplasm of kidney; Z80.3 Family history of malignant neoplasm of breast; Z82.49 Family history of ischemic heart disease and other diseases of the circulatory system
CPT/HCPCS: 36415; 71045; 74176; 80048; 80053; 81001; 82150; 82270; 82570; 82948; 83605; 83690; 83880; 84100; 84132; 84145; 84300; 84484; 85025; 85651; 87040; 87426; 93005; 93970; 93971; 99291; G0378; J1650; J1885; J2405; J2543; J3490; J7030; J7120; P9046; U0003

== ENCOUNTER 2020-06-25 08:26 | Day surgery (SDC) | payer OTHER, MEDICARE ==
[2020-06-25] VITALS (17 sets, daily range): BP systolic 93–129; BP diastolic 51–78
[~2020-06-25] VITALS: Ht 172.7 cm; Wt 149.7 kg
[~2020-06-25 08:26] MED LIST changes: +ACET1TAB25 PO; +AEC81 PO; -ASPI-556 PO; -BUSP5TAB3 PO; -CARV3.12 PO; -CELE100 PO; +CELE100C97 PO; -CEPH500B PO; +CETI10TA57 PO; +FA/M1TAB31 PO; +FURO40TA7 PO; -GABA-531 PO; +GABA600T10 PO; -HYDR-4457 PO; +ICOS1CAP PO; +METO-408 PO; -MULT-1289 PO; +SODIUM CHLORIDE 0.9% 1000ML 1,000 ML IV ONE; +TEMA15CA PO; -TRAZ-185 PO; +TRAZ-187 PO; +VENL-191 PO; -VENL150T3 PO; -VENL75TA89 PO
[2020-06-25] MEDS ORDERED: PROPOFOL 10 MG/ML 20ML VIAL IV ONE (10:22)
[2020-06-25] MEDS ORDERED: CHOL-34 PO (10:31)
[2020-06-25] MEDS ORDERED: LINA5TAB PO (10:31)
[2020-06-25] MEDS ORDERED: EXEN2PEN SQ (10:31)
[2020-06-25] MEDS ORDERED: CELE50CA PO (10:31)
[2020-06-25] MEDS ORDERED: BUSP30TA2 PO (10:31)
[2020-06-25] MEDS ORDERED: CARB15DR OU (10:31)
[2020-06-25] MEDS ORDERED: LOSA100T58 PO (10:31)
[2020-06-25] MEDS ORDERED: [UNRECOGNIZED DRUG - OTHER] PO (10:31)
[2020-06-25] MEDS ORDERED: OLOP5DRO21 OU (10:31)
[2020-06-25] MEDS ORDERED: CYCL30DR OU (10:31)
[2020-06-25] MEDS ORDERED: CARV12.511 PO (10:31)
[2020-06-25] MEDS ORDERED: ESCI20TA38 PO (10:31)
[2020-06-25] MEDS ORDERED: LABE300T2 PO (10:31)
[2020-06-25] MEDS ORDERED: SIMV-46 PO (10:31)
[2020-06-25] MEDS ORDERED: INSU100I15 SQ (10:31)
[2020-06-25] MEDS ORDERED: SPIR100T5 PO (10:31)
[2020-06-25] MEDS ORDERED: FINA5TAB41 PO (10:31)
[2020-06-25] MEDS ORDERED: NITROGLYCERIN 0.4 MG SL TAB SL ONE (11:58)
[2020-06-25] MEDS ORDERED: SUCRALFATE 1 GM TABLET PO ONE (12:30)
[2020-06-26] MEDS ORDERED: LACT10SO9 PO (07:29)
[2020-06-26] MEDS ORDERED: TAMS-1 PO (07:29)
== END 2020-06-25 13:00 | disposition home or self-care (01) ==
LOC: DAH 08:26 → ENDO 08:26
PROVIDERS: ATTEND Internal Medicine Gastroenterology
DX: R19.7 Diarrhea, unspecified (principal); Z20.822 Contact with and (suspected) exposure to COVID-19; K57.30 Diverticulosis of large intestine without perforation or abscess without bleeding; K21.00 Gastro-esophageal reflux disease with esophagitis, without bleeding; K29.70 Gastritis, unspecified, without bleeding; I10 Essential (primary) hypertension; I45.10 Unspecified right bundle-branch block; E66.01 Morbid (severe) obesity due to excess calories; I25.2 Old myocardial infarction; K21.9 Gastro-esophageal reflux disease without esophagitis; E11.9 Type 2 diabetes mellitus without complications; I25.10 Atherosclerotic heart disease of native coronary artery without angina pectoris; I48.0 Paroxysmal atrial fibrillation; M10.9 Gout, unspecified; E78.5 Hyperlipidemia, unspecified; Z95.0 Presence of cardiac pacemaker; Z79.01 Long term (current) use of anticoagulants; Z86.73 Personal history of transient ischemic attack (TIA), and cerebral infarction without residual deficits; Z79.82 Long term (current) use of aspirin; Z79.4 Long term (current) use of insulin; Z79.899 Other long term (current) drug therapy; Z90.49 Acquired absence of other specified parts of digestive tract; Z98.890 Other specified postprocedural states; Z87.891 Personal history of nicotine dependence; Z86.010 Personal history of colon polyps
CPT/HCPCS: 43239; 45378; 82948; 93005 ×2; A4215 ×2; A4221; A4222; A4223; A4606; A4620; A4657; A4663; C9803; J2704; J7030; U0003; 43262

== ENCOUNTER 2020-06-26 05:45 | Day surgery (SDC) | payer OTHER, MEDICARE ==
[~2020-06-26] VITALS: Ht 172.7 cm; Wt 149.7 kg
[~2020-06-26 05:45] MED LIST changes: +BUSP30TA2 PO; +CARB15DR OU; +CARV12.511 PO; -CELE100C97 PO; +CELE50CA PO; -CETI10TA57 PO; +CHOL-34 PO; +CYCL30DR OU; -EMPA25TA PO; +ESCI20TA38 PO; +EXEN2PEN SQ; -FA/M1TAB31 PO; -FURO40TA7 PO; -ICOS1CAP PO; +INSU100I15 SQ; +LABE300T2 PO; +LINA5TAB PO; +LOSA100T58 PO; -METO-408 PO; -METO5TAB7 PO; -OLME20TA22 PO; +OLOP5DRO21 OU; -POTA-79 PO; +SIMV-46 PO; -SODIUM CHLORIDE 0.9% 1000ML 1,000 ML IV ONE; +SPIR100T5 PO; -TEMA15CA PO; -TRAZ-187 PO; -VENL-191 PO; +[UNRECOGNIZED DRUG - OTHER] PO
[2020-06-26 06:30] VITALS: BP 125/81
[2020-06-26] MEDS ORDERED: SODIUM CHLORIDE 0.9% 1000ML 1,000 ML IV ONE (06:32)
[2020-06-26] MEDS ORDERED: LACT10SO9 PO (07:29)
[2020-06-26] MEDS ORDERED: TAMS-1 PO (07:29)
[2020-06-26] MEDS ORDERED: PROPOFOL 10 MG/ML 20ML VIAL IV ONE (07:29)
[2020-06-26 07:40] VITALS: BP 90/61
[2020-06-26 07:50] VITALS: BP 110/68
[2020-06-26 08:00] VITALS: BP 125/82
[2020-06-26 08:10] VITALS: BP 133/82
[2020-06-26 08:20] VITALS: BP 133/90
== END 2020-06-26 08:20 | disposition home or self-care (01) ==
LOC: DAH 05:45 → ENDO 05:45
PROVIDERS: ATTEND Internal Medicine Gastroenterology
DX: R19.7 Diarrhea, unspecified (principal); K57.30 Diverticulosis of large intestine without perforation or abscess without bleeding; I10 Essential (primary) hypertension; E11.43 Type 2 diabetes mellitus with diabetic autonomic (poly)neuropathy; K31.84 Gastroparesis; I25.2 Old myocardial infarction; E78.5 Hyperlipidemia, unspecified; I25.10 Atherosclerotic heart disease of native coronary artery without angina pectoris; K21.9 Gastro-esophageal reflux disease without esophagitis; M10.9 Gout, unspecified; Z87.01 Personal history of pneumonia (recurrent); Z79.01 Long term (current) use of anticoagulants; Z79.899 Other long term (current) drug therapy; Z79.82 Long term (current) use of aspirin; Z86.010 Personal history of colon polyps; Z90.49 Acquired absence of other specified parts of digestive tract; Z95.0 Presence of cardiac pacemaker; Z87.891 Personal history of nicotine dependence; Z86.73 Personal history of transient ischemic attack (TIA), and cerebral infarction without residual deficits; Z98.890 Other specified postprocedural states
CPT/HCPCS: 45380; 82948; A4215 ×2; A4221; A4222; A4223; A4606; A4620; A4657; A4663; J2704; J7030

== ENCOUNTER 2020-07-12 10:42 | Observation (INO) | payer OTHER, MEDICARE ==
[~2020-07-12] VITALS: Ht 172.7 cm; Wt 151.6 kg
[~2020-07-12 10:42] MED LIST changes: -CEFAZOLIN 3GM /D5W 100ML 100 ML IV SCH; -CELE100C PO; -CETI10CA5 PO; -EMPA25TA PO; -FLUT16H NASAL; -FURO40SO4 PO; -ICOS1CAP PO; -INSU100V3 IJ; -LEVO500T89 PO; -METO-408 PO; -METO5TAB7 PO; -OLME20TA22 PO; -OLME5TAB6 PO; -POTA-79 PO; -ROSU5TAB12 PO; -TRAZ-187 PO; -VENL75TA89 PO
[2020-07-12 11:13] LABS: BASOPHILS % (AUTO) 0.8 % (0.0-5.0); EOSINOPHILS % (AUTO) 2.5 % (0.0-8.0); HEMATOCRIT 43.3 % (42-54); LYMPHOCYTES % (AUTO) 22.1 % (21.0-51.0); MEAN CORPUSCULAR HEMOGLOBIN 28.3 pg (27.0-33.0); MEAN CORPUSCULAR HGB CONC 32.3 g/dL (32.0-36.0); MEAN CORPUSCULAR VOLUME 87.5 fL (79-99); MONOCYTES % (AUTO) 8.4 % (3.0-13.0); NEUTROPHILS % (AUTO) 65.2 % (40.0-77.0); PLATELET COUNT (AUTO) 202 K/uL (130-400); RED BLOOD CELL COUNT(AUTO) 4.95 MIL/uL (4.50-6.20); RED CELL DISTRIBUTION WIDTH 15.3 % (11.0-15.5); WHITE BLOOD COUNT (AUTO) 9.5 K/uL (4.8-10.8)
[2020-07-12 11:23] LABS: CREATININE 1.8 mg/dL (0.5-1.5)
[2020-07-12 11:28] LABS: ALBUMIN 3.2 g/dL (3.5-5.0); BILIRUBIN,TOTAL 0.4 mg/dL (0.2-1.0); TOTAL PROTEIN, SERUM 7.1 g/dL (6.0-8.3)
[2020-07-12 11:42] LABS: INR 1.37 (0.85-1.15); PROTHROMBIN TIME 14.5 SEC (9.6-11.6)
[2020-07-12 11:43] LABS: PARTIAL THROMBOPLASTIN TIME 36.4 SEC (26.3-35.5)
[2020-07-12 13:11] LABS: APPEARANCE,URINE Clear (CLEAR); BILIRUBIN,URINE Negative (NEGATIVE); COLOR,URINE Yellow (YELLOW); GLUCOSE, URINE (UA) 250 mg/dL (NEGATIVE); KETONES,URINE Negative (NEGATIVE); LEUKOCYTE ESTERASE ,URINE Moderate (NEGATIVE); NITRATE,URINE Positive (NEGATIVE); OCCULT BLOOD,URINE Negative (NEGATIVE); PROTEIN,URINE Negative (NEGATIVE); UROBILINOGEN,URINE 0.2 mg/dL (0.2-1.0)
[2020-07-12 13:30] LABS: BACTERIA,URINE Many /HPF (None Seen); RBC,URINE 0-1 /HPF (0-1); SQUAMOUS EPITHELIAL CELL,UR Rare /HPF (0-2); WBC,URINE 26-50 /HPF (0-1)
[2020-07-12] MEDS ORDERED: 0.9%NACL 1000ML 1,000 ML IV ONE ×2 (14:31→17:47)
[2020-07-12] MEDS ORDERED: CEFTRIAXONE 1G VIAL ONE (14:32)
[2020-07-12] MEDS ORDERED: 0.9%NACL 100ML 100 ML IV ONE (14:33)
[2020-07-12 14:37] LABS: ABG BASE EXCESS 2.6 mmol/L (-2.0-3.0); ABG HCO3 29.2 mmol/L (21.0-28.0); ABG OXYGEN SATURATION 94.7 % (95.0-99.0); ABG PCO2 53 mmHg (35-48)
[2020-07-12] MEDS ORDERED: ACETAMINOPHEN 500 MG TABLET ONE (15:36)
[2020-07-12] MEDS: 0.9%NACL 1000ML 1,000 ML IV SCH (15:45)
[2020-07-12] MEDS ORDERED: LEVOFLOXACIN 500 MG/D5W 100 ML 100 ML IV SCH ×2 (16:00→20:00)
[2020-07-12] MEDS ORDERED: LACTULOSE 20 GM/30 ML UDCUP PO PRN (17:30)
[2020-07-12] MEDS ORDERED: ACETAMINOPHEN 325 MG TAB PO PRN (17:30)
[2020-07-12] MEDS ORDERED: DiphenhydrAMINE HCL 50 MG/ML VIAL IV PRN (17:30)
[2020-07-12] MEDS ORDERED: ONDANSETRON 4MG INJ IV PRN (17:30)
[2020-07-12] MEDS ORDERED: DIPHENHYDRAMINE HCL 25 MG CAPSULE PO PRN (17:30)
[2020-07-12] MEDS ORDERED: MAG/ALUM/SIMETH 30 ML UDCUP PO PRN (17:30)
[2020-07-12] MEDS ORDERED: LEVOFLOXACIN 500 MG/D5W 100 ML 100 ML ONE (17:43)
[2020-07-12] MEDS ORDERED: ICOS1CAP PO (17:44)
[2020-07-12] MEDS ORDERED: VENL75TA89 PO (17:44)
[2020-07-12] MEDS ORDERED: TRAZ-187 PO (17:45)
[2020-07-12] MEDS ORDERED: OLME20TA22 PO (17:49)
[2020-07-12] MEDS ORDERED: POTA-79 PO (17:49)
[2020-07-12] MEDS ORDERED: METO-408 PO (17:49)
[2020-07-12] MEDS ORDERED: METO5TAB7 PO (17:49)
[2020-07-12] MEDS ORDERED: INSU100V3 IJ (17:52)
[2020-07-12] MEDS ORDERED: GABA600T10 PO (17:54)
[2020-07-12] MEDS ORDERED: EMPA25TA PO (17:55)
[2020-07-12] MEDS ORDERED: FURO40SO4 PO (17:57)
[2020-07-12] MEDS ORDERED: CELE100C PO (17:58)
[2020-07-12] MEDS ORDERED: FLUT16H NASAL (18:01)
[2020-07-12] MEDS ORDERED: CETI10CA5 PO (18:01)
[2020-07-12] MEDS ORDERED: AEC81 PO (18:02)
[2020-07-12] MEDS ORDERED: KCL 20 MEQ ERTAB PO PRN (18:15)
[2020-07-12] MEDS ORDERED: GLUCAGON 1MG KIT 1 MG ML IM PRN (18:15)
[2020-07-12] MEDS ORDERED: LIDOCAINE HCL-MPF 1% 2ML VIAL IV PRN ×2 (18:15)
[2020-07-12] MEDS ORDERED: DEXTROSE 50%-WATER 50 ML DISP.SYRIN IV PRN (18:15)
[2020-07-12] MEDS ORDERED: POTASSIUM CHLORIDE 10% ELIXIR 20 MEQ/15 ML UDCUP PO PRN (18:15)
[2020-07-12] MEDS ORDERED: POTASSIUM CHLORIDE 10MEQ/100ML 100 ML IV PRN ×2 (18:15)
[2020-07-12] MEDS ORDERED: SIMVASTATIN 20 MG TABLET PO SCH (21:00)
[2020-07-12] MEDS: INSULIN HUMULIN R 100 UNIT/ML 3ML SQ SCH (21:00)
[2020-07-12 21:20] VITALS: BP 88/45
[2020-07-12] MEDS: ACETAMINOPHEN 325 MG TAB PO PRN (22:58)
[2020-07-13] VITALS: BP 102/68
[2020-07-13] MEDS: ACETAMINOPHEN 325 MG TAB PO PRN ×3 (00:21→05:07)
[2020-07-13] MEDS: 0.9%NACL 1000ML 1,000 ML IV SCH ×2 (02:10→11:45)
[2020-07-13 04:00] VITALS: BP 104/70
[2020-07-13 04:36] LABS: HEMATOCRIT 39.3 % (42-54); MEAN CORPUSCULAR HEMOGLOBIN 28.5 pg (27.0-33.0); MEAN CORPUSCULAR HGB CONC 32.8 g/dL (32.0-36.0); MEAN CORPUSCULAR VOLUME 86.8 fL (79-99); RED BLOOD CELL COUNT(AUTO) 4.53 MIL/uL (4.50-6.20); RED CELL DISTRIBUTION WIDTH 15.2 % (11.0-15.5); WHITE BLOOD COUNT (AUTO) 8.3 K/uL (4.8-10.8)
[2020-07-13 04:54] LABS: CREATININE 1.7 mg/dL (0.5-1.5)
[2020-07-13] MEDS: INSULIN HUMULIN R 100 UNIT/ML 3ML SQ SCH ×2 (06:11→11:20)
[2020-07-13 07:11] VITALS: BP 102/69
[2020-07-13] MEDS ORDERED: TAMSULOSIN HCL 0.4 MG CAP.ER.24H PO SCH (09:00)
[2020-07-13] MEDS ORDERED: RIVAROXABAN 20 MG TABLET PO SCH (09:00)
[2020-07-13] MEDS ORDERED: FINASTERIDE 5 MG TABLET PO SCH (09:00)
[2020-07-13] MEDS ORDERED: LEVO500T90 PO (10:46)
[2020-07-13] MEDS ORDERED: OLME5TAB6 PO (10:50)
[2020-07-13] MEDS ORDERED: ROSU5TAB12 PO (10:51)
[2020-07-13 11:12] VITALS: BP 122/78
[2020-07-13] MEDS ORDERED: LEVOFLOXACIN 500 MG TABLET PO SCH (12:15)
== END 2020-07-13 14:10 | disposition home or self-care (01) ==
LOC: EDH 10:42 → INTOOBSV 14:29 → EDHIP 14:29 → 4DH 21:03 → 4CH 21:25
PROVIDERS: ADMIT Internal Medicine; ATTEND Internal Medicine
DX: I95.1 Orthostatic hypotension (principal); N39.0 Urinary tract infection, site not specified; J44.9 Chronic obstructive pulmonary disease, unspecified; E11.3219 Type 2 diabetes mellitus with mild nonproliferative diabetic retinopathy with macular edema, unspecified eye; I13.0 Hypertensive heart and chronic kidney disease with heart failure and stage 1 through stage 4 chronic kidney disease, or unspecified chronic kidney disease; E11.22 Type 2 diabetes mellitus with diabetic chronic kidney disease; N18.31 Chronic kidney disease, stage 3a; I50.22 Chronic systolic (congestive) heart failure; E11.42 Type 2 diabetes mellitus with diabetic polyneuropathy; N13.8 Other obstructive and reflux uropathy; N40.1 Benign prostatic hyperplasia with lower urinary tract symptoms; E11.65 Type 2 diabetes mellitus with hyperglycemia; E66.01 Morbid (severe) obesity due to excess calories; K76.6 Portal hypertension; I48.0 Paroxysmal atrial fibrillation; I49.5 Sick sinus syndrome; I70.203 Unspecified atherosclerosis of native arteries of extremities, bilateral legs; K74.60 Unspecified cirrhosis of liver; J30.9 Allergic rhinitis, unspecified; I25.10 Atherosclerotic heart disease of native coronary artery without angina pectoris; E53.8 Deficiency of other specified B group vitamins; E53.1 Pyridoxine deficiency; G40.209 Localization-related (focal) (partial) symptomatic epilepsy and epileptic syndromes with complex partial seizures, not intractable, without status epilepticus; G89.4 Chronic pain syndrome; M06.9 Rheumatoid arthritis, unspecified; M19.90 Unspecified osteoarthritis, unspecified site; K21.9 Gastro-esophageal reflux disease without esophagitis; E78.2 Mixed hyperlipidemia; F17.200 Nicotine dependence, unspecified, uncomplicated; F11.20 Opioid dependence, uncomplicated; Z86.73 Personal history of transient ischemic attack (TIA), and cerebral infarction without residual deficits; Z95.0 Presence of cardiac pacemaker; Z90.49 Acquired absence of other specified parts of digestive tract; Z79.82 Long term (current) use of aspirin; Z79.01 Long term (current) use of anticoagulants; Z79.4 Long term (current) use of insulin; Z79.899 Other long term (current) drug therapy; Z91.048 Other nonmedicinal substance allergy status; Z68.43 Body mass index [BMI] 50.0-59.9, adult
CPT/HCPCS: 36415 ×3; 36600; 71045; 80048 ×2; 80053; 81001; 82140; 82550; 82803; 82948 ×3; 83605 ×2; 83880; 84484; 85025 ×2; 85027; 85610; 85651; 85730; 86140; 87040 ×2; 87077; 87088; 87186; 93005; 96360; 96361; 99285; G0378 ×21; J0696; J1956; J7030 ×3; J0690

== ENCOUNTER → 2020-07-12 | Outpatient (CLI) | payer OTHER, MEDICARE ==
[~2020-07-12] MED LIST changes: +CEFAZOLIN 3GM /D5W 100ML 100 ML IV SCH; +CELE100C PO; +CETI10CA5 PO; +EMPA25TA PO; +FLUT16H NASAL; +FURO40SO4 PO; +ICOS1CAP PO; +INSU100V3 IJ; +LACT10SO9 PO; +LEVO500T89 PO; +METO-408 PO; +METO5TAB7 PO; +OLME20TA22 PO; +OLME5TAB6 PO; +POTA-79 PO; +ROSU5TAB12 PO; +TRAZ-187 PO; +VENL75TA89 PO
[2020-07-12 10:35] LABS: BASOPHILS % (AUTO) 0.8 % (0.0-5.0); EOSINOPHILS % (AUTO) 2.6 % (0.0-8.0); HEMATOCRIT 43.7 % (42-54); LYMPHOCYTES % (AUTO) 23.1 % (21.0-51.0); MEAN CORPUSCULAR HGB CONC 31.8 g/dL (32.0-36.0); MEAN CORPUSCULAR VOLUME 88.1 fL (79-99); MONOCYTES % (AUTO) 9.2 % (3.0-13.0); NEUTROPHILS % (AUTO) 63.9 % (40.0-77.0); PLATELET COUNT (AUTO) 207 K/uL (130-400); RED BLOOD CELL COUNT(AUTO) 4.96 MIL/uL (4.50-6.20); RED CELL DISTRIBUTION WIDTH 15.4 % (11.0-15.5); WHITE BLOOD COUNT (AUTO) 9.5 K/uL (4.8-10.8)
[2020-07-12 10:50] LABS: CREATININE 1.9 mg/dL (0.5-1.5); POTASSIUM 3.9 mmol/L (3.5-5.1)
== END | disposition home or self-care (01) ==
LOC: DAH 10:00 → EDSTATUS 12:00
PROVIDERS: ATTEND Orthopaedic Surgery
DX: Z01.818 Encounter for other preprocedural examination (principal); M79.672 Pain in left foot; G89.29 Other chronic pain
CPT/HCPCS: 36415; 80048; 85025; J0690

== ENCOUNTER 2020-08-22 13:00 | Observation (INO) | payer OTHER, MEDICARE ==
[~2020-08-22] VITALS: Ht 172.7 cm; Wt 153.0 kg
[2020-08-22 11:11] LABS: BASOPHILS % (AUTO) 0.6 % (0.0-5.0); EOSINOPHILS % (AUTO) 1.6 % (0.0-8.0); MEAN CORPUSCULAR HGB CONC 31.4 g/dL (32.0-36.0); MEAN CORPUSCULAR VOLUME 85.9 fL (79-99); NEUTROPHILS % (AUTO) 71.5 % (40.0-77.0); PLATELET COUNT (AUTO) 202 K/uL (130-400); RED BLOOD CELL COUNT(AUTO) 5.12 MIL/uL (4.50-6.20); RED CELL DISTRIBUTION WIDTH 15.3 % (11.0-15.5); WHITE BLOOD COUNT (AUTO) 10.1 K/uL (4.8-10.8)
[2020-08-22 11:14] LABS: CREATININE 1.3 mg/dL (0.5-1.5); POTASSIUM 4.8 mmol/L (3.5-5.1)
[2020-08-22 12:51] VITALS: BP 105/49
[~2020-08-22 13:00] MED LIST changes: -AEC81 PO; -BUSP30TA2 PO; -CARB15DR OU; -CARV12.511 PO; -CELE50CA PO; -CHOL-34 PO; -CYCL30DR OU; -ESCI20TA38 PO; -EXEN2PEN SQ; -FINA5TAB41 PO; -GABA600T10 PO; -INSU100I15 SQ; -LABE300T2 PO; -LACT10SO9 PO; -LINA5TAB PO; -LOSA100T58 PO; -OLOP5DRO21 OU; -RIVA20TA PO; -SIMV-46 PO; -SPIR100T5 PO; -[UNRECOGNIZED DRUG - OTHER] PO
[2020-08-23] MEDS ORDERED: LACT10SO32 PO (14:25)
[2020-08-23] MEDS ORDERED: VENL-191 PO (14:25)
[2020-08-23] MEDS ORDERED: POTA-79 PO (14:25)
[2020-08-23] MEDS ORDERED: OLME20TA22 PO (14:25)
[2020-08-23] MEDS ORDERED: EMPA25TA PO (14:25)
[2020-08-23] MEDS ORDERED: PYRI25TA3 PO (14:25)
[2020-08-23] MEDS ORDERED: GABA300C PO (14:25)
[2020-08-23] MEDS ORDERED: CYCL30DR OP (14:25)
[2020-08-23] MEDS ORDERED: ROSU5TAB12 PO (14:25)
[2020-08-23] MEDS ORDERED: OMEP40CA21 PO (14:25)
[2020-08-23] MEDS ORDERED: INSU300I SQ (14:25)
[2020-08-23] MEDS ORDERED: CYAN-35 PO (14:25)
[2020-08-23] MEDS ORDERED: METO-408 PO (14:25)
[2020-08-23] MEDS ORDERED: TRAZ-187 PO (14:25)
[2020-08-23] MEDS ORDERED: CETI10TA57 PO (14:25)
[2020-08-26] VITALS (17 sets, daily range): BP systolic 85–137; BP diastolic 39–91
[2020-08-26] MEDS: CEFAZOLIN SODIUM 1 GM VIAL IVP SCH ×2 (05:00→08:50)
[2020-08-26] MEDS ORDERED: 0.9%NACL 1000ML 1,000 ML IV ONE (06:33)
[2020-08-26] MEDS ORDERED: CEFAZOLIN SODIUM 1 GM VIAL ONE (07:56)
[2020-08-26] MEDS ORDERED: LIDOCAINE PF 100MG/5ML (2%) SYRINGE 5ML ONE ×2 (08:38→08:39)
[2020-08-26] MEDS ORDERED: MIDAZOLAM HCL 1 MG/ML 2ML VIAL ONE (08:38)
[2020-08-26] MEDS ORDERED: SUCCINYLCHOLINE CHLORIDE 20 MG/ML 10 ML VIAL ONE ×2 (08:38→08:40)
[2020-08-26] MEDS ORDERED: DEXAMETHASONE SOD PHOSPHATE 10MG/ML 1ML VIAL ONE (08:38)
[2020-08-26] MEDS ORDERED: GLYCOPYRROLATE 1 MG/5 ML SYRINGE ONE (08:39)
[2020-08-26] MEDS ORDERED: ONDANSETRON 4MG INJ ONE ×2 (08:39→11:56)
[2020-08-26] MEDS ORDERED: NEOSTIGMINE 5MG/5ML SYR IV ONE (08:39)
[2020-08-26] MEDS ORDERED: PROPOFOL 10 MG/ML 20ML VIAL IV ONE ×2 (08:39→11:13)
[2020-08-26] MEDS ORDERED: FENTANYL CITRATE PF 50 MCG/1 ML 2ML VIAL ONE (08:39)
[2020-08-26] MEDS ORDERED: ROCURONIUM 10MG/1ML SYR 10 MG/ML ML ONE (08:39)
[2020-08-26] MEDS ORDERED: PHENYLEPHRINE HCL 10 MG/ML 1ML VIAL IV ONE (09:09)
[2020-08-26] MEDS ORDERED: EPHEDRINE SULFATE 50 MG/ML AMPULE ONE (09:15)
[2020-08-26] MEDS ORDERED: VASOPRESSIN 20 UNITS/ML 1ML VIAL ONE (09:23)
[2020-08-26] MEDS ORDERED: BUPIVACAINE/PF 0.5% 30ML VIAL ONE (10:46)
[2020-08-26] MEDS ORDERED: ACET1TAB25 PO (11:08)
[2020-08-26] MEDS ORDERED: SULF1TAB42 PO (11:08)
[2020-08-26] MEDS ORDERED: MEPERIDINE-PF 25 MG/ML SYG ONE (11:48)
== END 2020-08-26 13:15 | disposition home or self-care (01) ==
LOC: EDSTATUS 13:00 → DAHIP 08-26 06:00
PROVIDERS: ADMIT Orthopaedic Surgery; ATTEND Orthopaedic Surgery
DX: T84.7XXD Infection and inflammatory reaction due to other internal orthopedic prosthetic devices, implants and grafts, subsequent encounter (principal); Z20.822 Contact with and (suspected) exposure to COVID-19; M25.572 Pain in left ankle and joints of left foot; G89.29 Other chronic pain; I10 Essential (primary) hypertension; I25.10 Atherosclerotic heart disease of native coronary artery without angina pectoris; I48.0 Paroxysmal atrial fibrillation; Z95.0 Presence of cardiac pacemaker; E66.01 Morbid (severe) obesity due to excess calories; Z96.653 Presence of artificial knee joint, bilateral; Z91.048 Other nonmedicinal substance allergy status; Z68.43 Body mass index [BMI] 50.0-59.9, adult
CPT/HCPCS: 27704; 36415; 73610; 80048; 82948 ×2; 85025; 87641; 88300; 93005; 96361 ×2; 96374; A4215; A4221; A4222; A4223; A4649; A4663; A6223; G0378 ×3; G0379; J0330 ×2; J0690 ×3; J1100; J2001 ×2; J2175; J2250; J2370; J2405 ×2; J2704; J2710; J3010; J3490 ×4; J7030 ×2; Q4051; U0003; 96360

== ENCOUNTER 2021-05-13 14:43 | Inpatient (IN) | payer OTHER, MEDICARE ==
[~2021-05-13] VITALS: Ht 172.7 cm; Wt 150.7 kg
[~2021-05-13 14:43] MED LIST changes: +CETI10TA57 PO; +CYAN-35 PO; +CYCL30DR OP; +EMPA25TA PO; +GABA300C PO; +INSU300I SQ; +LACT10SO32 PO; +METO-408 PO; +OLME20TA22 PO; +OMEP40CA21 PO; +POTA-79 PO; +PYRI25TA3 PO; +ROSU5TAB12 PO; +SULF1TAB42 PO; +TRAZ-187 PO; +VENL-191 PO
[2021-05-13 15:24] LABS: BASOPHILS % (AUTO) 0.4 % (0.0-5.0); EOSINOPHILS % (AUTO) 3.3 % (0.0-8.0); HEMATOCRIT 43.5 % (42-54); LYMPHOCYTES % (AUTO) 23.1 % (21.0-51.0); MEAN CORPUSCULAR HEMOGLOBIN 23.4 pg (27.0-33.0); MEAN CORPUSCULAR HGB CONC 30.3 g/dL (32.0-36.0); MEAN CORPUSCULAR VOLUME 77.1 fL (79-99); MONOCYTES % (AUTO) 10.8 % (3.0-13.0); NEUTROPHILS % (AUTO) 61.6 % (40.0-77.0); PLATELET COUNT (AUTO) 184 K/uL (130-400); RED BLOOD CELL COUNT(AUTO) 5.64 MIL/uL (4.50-6.20); RED CELL DISTRIBUTION WIDTH 19.6 % (11.0-15.5); WHITE BLOOD COUNT (AUTO) 4.8 K/uL (4.8-10.8)
[2021-05-13] MEDS ORDERED: 0.9%NACL 1000ML 1,000 ML IV ONE (15:30)
[2021-05-13 15:47] LABS: CREATININE 1.6 mg/dL (0.5-1.5)
[2021-05-13 15:56] LABS: ALBUMIN 2.5 g/dL (3.5-5.0); BILIRUBIN,TOTAL 0.8 mg/dL (0.2-1.0); TOTAL PROTEIN, SERUM 6.8 g/dL (6.0-8.3)
[2021-05-13] MEDS ORDERED: NOREPINEPHRIN 4MG/NS 250ML 250 ML IV ONE (15:58)
[2021-05-13] MEDS ORDERED: ZOSYN 3.375GM +NS 50ML IV SCH (16:30)
[2021-05-13] MEDS ORDERED: RIVA20TA PO (16:41)
[2021-05-13] MEDS ORDERED: GABA300C PO ×2 (16:41→17:01)
[2021-05-13] MEDS ORDERED: VENL-191 PO (16:41)
[2021-05-13] MEDS ORDERED: METO-408 PO (16:41)
[2021-05-13] MEDS ORDERED: DEXAMETHASONE SOD PHOSPHATE 4 MG/ML 1ML VIAL IVP ONE (17:00)
[2021-05-13] MEDS ORDERED: INSU500I SQ ×2 (17:01→17:02)
[2021-05-13] MEDS ORDERED: [UNRECOGNIZED DRUG - SUPPLY] NASAL (17:01)
[2021-05-13] MEDS ORDERED: FLUT16H NASAL (17:01)
[2021-05-13] MEDS ORDERED: SEMA1PEN3 SQ (17:01)
[2021-05-13] MEDS ORDERED: TRAZ-187 PO (17:01)
[2021-05-13] MEDS ORDERED: INSU300I SQ (17:01)
[2021-05-13] MEDS ORDERED: FURO40TA5 PO (17:01)
[2021-05-13] MEDS ORDERED: BROM3DRO OP (17:01)
[2021-05-13] MEDS ORDERED: OMEP40CA21 PO (17:01)
[2021-05-13] MEDS ORDERED: MECO10005 PO (17:01)
[2021-05-13 18:19] LABS: APPEARANCE,URINE Clear (CLEAR); BILIRUBIN,URINE Negative (NEGATIVE); COLOR,URINE Yellow (YELLOW); GLUCOSE, URINE (UA) >=1000 mg/dL (NEGATIVE); KETONES,URINE Negative (NEGATIVE); LEUKOCYTE ESTERASE ,URINE Negative (NEGATIVE); NITRATE,URINE Negative (NEGATIVE); OCCULT BLOOD,URINE Negative (NEGATIVE); PROTEIN,URINE Negative (NEGATIVE)
[2021-05-13 18:57] LABS: RBC,URINE None Seen /HPF (0-1); WBC,URINE 0-1 /HPF (0-1)
[2021-05-13 18:58] LABS: BACTERIA,URINE None Seen /HPF (None Seen); SQUAMOUS EPITHELIAL CELL,UR None Seen /HPF (0-2)
[2021-05-13] MEDS ORDERED: POTASSIUM CHLORIDE 10MEQ/100ML 100 ML IV PRN (19:30)
[2021-05-13] MEDS: 0.9%NACL 1000ML 1,000 ML IV SCH (19:30)
[2021-05-13] MEDS ORDERED: LACTULOSE 20 GM/30 ML UDCUP PO PRN (19:30)
[2021-05-13] MEDS ORDERED: MAG/ALUM/SIMETH 30 ML UDCUP PO PRN (19:30)
[2021-05-13] MEDS ORDERED: POTASSIUM CHLORIDE 10% ELIXIR 20 MEQ/15 ML UDCUP PO PRN (19:30)
[2021-05-13] MEDS ORDERED: ACETAMINOPHEN 325 MG TAB PO PRN ×2 (19:30)
[2021-05-13] MEDS ORDERED: KCL 20 MEQ ERTAB PO PRN (19:30)
[2021-05-13] MEDS ORDERED: ONDANSETRON 4MG INJ IV PRN (19:30)
[2021-05-13] MEDS ORDERED: DIPHENHYDRAMINE HCL 25 MG CAPSULE PO PRN (19:30)
[2021-05-13] MEDS ORDERED: ALBUTEROL 0.083% 2.5 MG/3 ML INH IH PRN (19:30)
[2021-05-13] MEDS ORDERED: POTASSIUM CHLORIDE 20MEQ/100ML 100 ML IV PRN (19:30)
[2021-05-13] MEDS ORDERED: LIDOCAINE HCL-MPF 1% 2ML VIAL IV PRN ×2 (19:30)
[2021-05-13] MEDS ORDERED: GUAIFENESIN-DM 200/20 MG 10 ML PO PRN (19:30)
[2021-05-13] MEDS: VENLAFAXINE HCL 75 MG TAB PO SCH (21:00)
[2021-05-13] MEDS: ENOXAPARIN SODIUM 40 MG/0.4 ML SYRINGE SQ SCH (21:00)
[2021-05-14] MEDS: 0.9%NACL 1000ML 1,000 ML IV SCH ×2 (06:00→10:44)
[2021-05-14] MEDS: ALBUTEROL 0.083% 2.5 MG/3 ML INH IH SCH ×4 (06:00→18:00)
[2021-05-14 06:29] LABS: HEMATOCRIT 42.3 % (42-54); MEAN CORPUSCULAR HEMOGLOBIN 24.6 pg (27.0-33.0); MEAN CORPUSCULAR HGB CONC 31.7 g/dL (32.0-36.0); MEAN CORPUSCULAR VOLUME 77.8 fL (79-99); PLATELET COUNT (AUTO) 197 K/uL (130-400); RED BLOOD CELL COUNT(AUTO) 5.44 MIL/uL (4.50-6.20); WHITE BLOOD COUNT (AUTO) 2.9 K/uL (4.8-10.8)
[2021-05-14 06:38] LABS: CREATININE 1.3 mg/dL (0.5-1.5); POTASSIUM 4.5 mmol/L (3.5-5.1)
[2021-05-14 07:23] LABS: LYMPHOCYTES % (MANUAL) 19 % (22-44); MAN.DIFF COMMENT-IMPRESSION MANUAL DIFFERENTIAL; MONOCYTES % (MANUAL) 3 % (2-9); PLATELET MORPHOLOGY COMMENT ADEQUATE; SEGMENTED NEUTROPHILS % 78 % (40-70)
[2021-05-14] MEDS: BROMFENAC SODIUM OP SCH (09:00)
[2021-05-14] MEDS ORDERED: [UNRECOGNIZED DRUG - OTHER] SQ SCH (09:00)
[2021-05-14] MEDS ORDERED: NON-FORMULARY MEDICATION 1 EACH (Cetirizine HCl 10 MG) PO SCH (09:00)
[2021-05-14] MEDS ORDERED: NON-FORMULARY MEDICATION 1 EACH (Mecobalamin (B12 Active) 1,000 MCG) PO SCH (09:00)
[2021-05-14] MEDS ORDERED: NON-FORMULARY MEDICATION 1 EACH (Omeprazole 40 MG) PO SCH (09:00)
[2021-05-14] MEDS ORDERED: INSULIN GLARGINE HUM REC ANLOG 30 UNIT SQ SCH (09:00)
[2021-05-14] MEDS: CETIRIZINE HCL 5 MG TABLET PO SCH (10:43)
[2021-05-14] MEDS: DEXAMETHASONE SOD PHOSPHATE 4 MG/ML 1ML VIAL IVP SCH (10:43)
[2021-05-14] MEDS: CYANOCOBALAMIN (VITAMIN B-12) 1,000 MCG TABLET PO SCH (10:43)
[2021-05-14] MEDS: VENLAFAXINE HCL 75 MG TAB PO SCH ×2 (10:43→21:22)
[2021-05-14] MEDS: PANTOPRAZOLE 40 MG TAB DR PO SCH (10:43)
[2021-05-14] MEDS: Rosuvastatin Calcium 5 MG PO SCH (10:43)
[2021-05-14] MEDS: INSULIN GLARGINE 100 UNITS/ML 10 ML VIAL SQ SCH (10:44)
[2021-05-14] MEDS: ENOXAPARIN SODIUM 40 MG/0.4 ML SYRINGE SQ SCH ×2 (10:44→21:21)
[2021-05-14] MEDS: INSULIN HUMULIN R 100 UNIT/ML 3ML SQ SCH ×2 (16:30→21:23)
[2021-05-14] MEDS: ACETAMINOPHEN WITH CODEINE 1 TAB TAB PO PRN (16:31)
[2021-05-14 19:02] VITALS: BP 123/70
[2021-05-14] MEDS: LEVOFLOXACIN 500 MG TABLET PO SCH (19:05)
[2021-05-14] MEDS: TAMSULOSIN HCL 0.4 MG CAP.ER.24H PO SCH (21:22)
[2021-05-14] MEDS: TRAZODONE HCL 100 MG TABLET PO SCH (21:22)
[2021-05-14] MEDS: GABAPENTIN 300 MG CAPSULE PO SCH (21:22)
[2021-05-15 00:31] VITALS: BP 119/71
[2021-05-15 04:00] VITALS: BP 128/76
[2021-05-15 04:14] LABS: HEMATOCRIT 43.6 % (42-54); MEAN CORPUSCULAR HEMOGLOBIN 23.5 pg (27.0-33.0); MEAN CORPUSCULAR VOLUME 75.8 fL (79-99); RED BLOOD CELL COUNT(AUTO) 5.75 MIL/uL (4.50-6.20); RED CELL DISTRIBUTION WIDTH 19.2 % (11.0-15.5); WHITE BLOOD COUNT (AUTO) 8.4 K/uL (4.8-10.8)
[2021-05-15 04:24] LABS: CREATININE 1.3 mg/dL (0.5-1.5); POTASSIUM 4.2 mmol/L (3.5-5.1)
[2021-05-15] MEDS: ALBUTEROL 0.083% 2.5 MG/3 ML INH IH SCH ×4 (06:00→17:08)
[2021-05-15] MEDS: INSULIN HUMULIN R 100 UNIT/ML 3ML SQ SCH ×4 (06:17→21:00)
[2021-05-15] MEDS: BROMFENAC SODIUM OP SCH (09:00)
[2021-05-15 09:09] VITALS: BP 99/46
[2021-05-15] MEDS: ENOXAPARIN SODIUM 40 MG/0.4 ML SYRINGE SQ SCH ×2 (09:14→22:02)
[2021-05-15] MEDS: DEXAMETHASONE SOD PHOSPHATE 4 MG/ML 1ML VIAL IVP SCH (09:14)
[2021-05-15] MEDS: VENLAFAXINE HCL 75 MG TAB PO SCH ×2 (09:15→21:59)
[2021-05-15] MEDS: CYANOCOBALAMIN (VITAMIN B-12) 1,000 MCG TABLET PO SCH (09:15)
[2021-05-15] MEDS: PANTOPRAZOLE 40 MG TAB DR PO SCH (09:15)
[2021-05-15] MEDS: CETIRIZINE HCL 5 MG TABLET PO SCH (09:15)
[2021-05-15] MEDS: GABAPENTIN 300 MG CAPSULE PO SCH ×3 (09:16→22:00)
[2021-05-15] MEDS: Rosuvastatin Calcium 5 MG PO SCH (09:17)
[2021-05-15] MEDS: INSULIN GLARGINE 100 UNITS/ML 10 ML VIAL SQ SCH (09:21)
[2021-05-15] MEDS: ACETAMINOPHEN WITH CODEINE 1 TAB TAB PO PRN ×2 (11:49→21:59)
[2021-05-15 12:00] VITALS: BP 112/56
[2021-05-15] MEDS: LEVOFLOXACIN 500 MG TABLET PO SCH (13:47)
[2021-05-15 16:00] VITALS: BP 133/78
[2021-05-15 20:00] VITALS: BP 130/68
[2021-05-15] MEDS: TAMSULOSIN HCL 0.4 MG CAP.ER.24H PO SCH (22:00)
[2021-05-15] MEDS: TRAZODONE HCL 100 MG TABLET PO SCH (22:00)
[2021-05-15] MEDS ORDERED: LEVO500T90 PO (22:23)
[2021-05-15] MEDS ORDERED: DEXA6TAB PO (22:24)
[2021-05-16] VITALS: BP 133/71
[2021-05-16 04:00] VITALS: BP 129/72
[2021-05-16 04:33] LABS: HEMATOCRIT 42.6 % (42-54); MEAN CORPUSCULAR HEMOGLOBIN 23.9 pg (27.0-33.0); MEAN CORPUSCULAR HGB CONC 31.5 g/dL (32.0-36.0); MEAN CORPUSCULAR VOLUME 75.9 fL (79-99); RED BLOOD CELL COUNT(AUTO) 5.61 MIL/uL (4.50-6.20); RED CELL DISTRIBUTION WIDTH 19.3 % (11.0-15.5)
[2021-05-16 04:45] LABS: CREATININE 1.3 mg/dL (0.5-1.5); POTASSIUM 3.9 mmol/L (3.5-5.1)
[2021-05-16] MEDS: INSULIN HUMULIN R 100 UNIT/ML 3ML SQ SCH ×2 (07:25→11:30)
[2021-05-16 08:00] VITALS: BP 119/77
[2021-05-16] MEDS ORDERED: DEXAMETHASONE 4 MG TAB PO SCH (09:00)
[2021-05-16] MEDS: BROMFENAC SODIUM OP SCH (09:00)
[2021-05-16] MEDS: PANTOPRAZOLE 40 MG TAB DR PO SCH (09:08)
[2021-05-16] MEDS: CYANOCOBALAMIN (VITAMIN B-12) 1,000 MCG TABLET PO SCH (09:08)
[2021-05-16] MEDS: VENLAFAXINE HCL 75 MG TAB PO SCH (09:08)
[2021-05-16] MEDS: GABAPENTIN 300 MG CAPSULE PO SCH ×2 (09:09→13:28)
[2021-05-16] MEDS: CETIRIZINE HCL 5 MG TABLET PO SCH (09:09)
[2021-05-16] MEDS: Rosuvastatin Calcium 5 MG PO SCH (09:09)
[2021-05-16] MEDS: ENOXAPARIN SODIUM 40 MG/0.4 ML SYRINGE SQ SCH (09:10)
[2021-05-16] MEDS: INSULIN GLARGINE 100 UNITS/ML 10 ML VIAL SQ SCH (09:11)
[2021-05-16] MEDS ORDERED: TOBRDOS OU (09:45)
[2021-05-16] MEDS: TOBRAMYCIN/DEXAMETHASONE OPTH SUSP 2.5 ML BOT OU SCH ×2 (10:46→13:28)
[2021-05-16 11:00] VITALS: BP 106/52
[2021-05-16] MEDS: LEVOFLOXACIN 500 MG TABLET PO SCH (13:28)
== END 2021-05-16 14:51 | disposition home health service (06) | DRG 871 ==
LOC: EDH 14:43 → EDHIP 19:12 → 2AH 05-14 18:11
PROVIDERS: ADMIT Internal Medicine; ATTEND Internal Medicine
DX: A41.9 Sepsis, unspecified organism (principal); U07.1 COVID-19; J12.82 Pneumonia due to coronavirus disease 2019; J15.9 Unspecified bacterial pneumonia; J96.00 Acute respiratory failure, unspecified whether with hypoxia or hypercapnia; R65.21 Severe sepsis with septic shock; D84.81 Immunodeficiency due to conditions classified elsewhere; F11.20 Opioid dependence, uncomplicated; F13.20 Sedative, hypnotic or anxiolytic dependence, uncomplicated; F32.1 Major depressive disorder, single episode, moderate; G40.209 Localization-related (focal) (partial) symptomatic epilepsy and epileptic syndromes with complex partial seizures, not intractable, without status epilepticus; I13.0 Hypertensive heart and chronic kidney disease with heart failure and stage 1 through stage 4 chronic kidney disease, or unspecified chronic kidney disease; I42.9 Cardiomyopathy, unspecified; I50.22 Chronic systolic (congestive) heart failure; J44.0 Chronic obstructive pulmonary disease with (acute) lower respiratory infection; K76.6 Portal hypertension; N13.8 Other obstructive and reflux uropathy; Z68.43 Body mass index [BMI] 50.0-59.9, adult; E11.22 Type 2 diabetes mellitus with diabetic chronic kidney disease; E11.42 Type 2 diabetes mellitus with diabetic polyneuropathy; E11.43 Type 2 diabetes mellitus with diabetic autonomic (poly)neuropathy; E11.51 Type 2 diabetes mellitus with diabetic peripheral angiopathy without gangrene; E11.65 Type 2 diabetes mellitus with hyperglycemia; E66.01 Morbid (severe) obesity due to excess calories; E78.2 Mixed hyperlipidemia; F12.10 Cannabis abuse, uncomplicated; F14.11 Cocaine abuse, in remission; F51.04 Psychophysiologic insomnia; G47.33 Obstructive sleep apnea (adult) (pediatric); I25.10 Atherosclerotic heart disease of native coronary artery without angina pectoris; I48.91 Unspecified atrial fibrillation; I49.5 Sick sinus syndrome; J30.9 Allergic rhinitis, unspecified; K21.9 Gastro-esophageal reflux disease without esophagitis; K31.84 Gastroparesis; K74.60 Unspecified cirrhosis of liver; M19.90 Unspecified osteoarthritis, unspecified site; N18.31 Chronic kidney disease, stage 3a; E11.3213 Type 2 diabetes mellitus with mild nonproliferative diabetic retinopathy with macular edema, bilateral; N40.1 Benign prostatic hyperplasia with lower urinary tract symptoms; R32 Unspecified urinary incontinence; Z96.653 Presence of artificial knee joint, bilateral; Z91.048 Other nonmedicinal substance allergy status; Z95.0 Presence of cardiac pacemaker; Z79.01 Long term (current) use of anticoagulants; Z79.4 Long term (current) use of insulin; Z79.899 Other long term (current) drug therapy; Z90.49 Acquired absence of other specified parts of digestive tract; Z91.19 Patient's noncompliance with other medical treatment and regimen; Z80.3 Family history of malignant neoplasm of breast; Z80.51 Family history of malignant neoplasm of kidney; Z83.3 Family history of diabetes mellitus; Z82.0 Family history of epilepsy and other diseases of the nervous system; Z82.3 Family history of stroke; Z82.49 Family history of ischemic heart disease and other diseases of the circulatory system; Z82.5 Family history of asthma and other chronic lower respiratory diseases
CPT/HCPCS: 36415; 71045; 80048; 80053; 81001; 82948; 83605; 84484; 85025; 85027; 87040; 87088; 87635; 87804; 93005; 97039; 99291; C9803; G0378; J1100; J1650; J1815; J2543; J3490; J7030; J8540; Q0163

== ENCOUNTER → 2021-08-12 | Outpatient (CLI) | payer OTHER, MEDICARE ==
[~2021-08-12] MED LIST changes: +ACET-2079 PO; -ACET1TAB25 PO; +BROM3DRO OP; -CYAN-35 PO; -CYCL30DR OP; +DEXA6TAB PO; +FLUT16H NASAL; -LACT10SO32 PO; +LEVO500T90 PO; +MECO10005 PO; -PYRI25TA3 PO; +RIVA20TA PO; +SEMA1PEN3 SQ; -SULF1TAB42 PO; +TOBRDOS OU
== END | disposition home or self-care (01) ==
LOC: RAH 09:11
PROVIDERS: ATTEND Internal Medicine
DX: M79.605 Pain in left leg (principal)
CPT/HCPCS: 93926